=== PATIENT | male | born 1950 | race Hispanic/Latino ===

== ENCOUNTER 2025-03-22 13:24 | Inpatient (IN) | payer MEDICARE ==
[~2025-03-22] VITALS: Ht 167.6 cm; Wt 82.2 kg
[~2025-03-22 13:24] MED LIST: ACET-3859 PO; ASPI-1197 PO; ATOR40TA71 PO; CARV6.25 PO; EMPA10TA PO; METF-444 PO; NITR0.4T50 SL; SACU1TAB7 PO; SPIR25TA6 PO; TAMS-55 PO
[2025-03-22 14:50] VITALS: BP 127/96; PULSE 77; RESP 20; TEMP 98.9
[2025-03-22] MEDS ORDERED: LOSA50TA64 PO (15:28)
[2025-03-22] MEDS ORDERED: ISOS30TA92 PO (15:28)
[2025-03-22] MEDS ORDERED: TRAZ-185 PO (15:28)
[2025-03-22] MEDS ORDERED: PoTASSium chloRIDE 20MEQ ER 20 MEQ ERTAB PO PRN (15:30)
[2025-03-22] MEDS ORDERED: PoTASSium chl 10% ELIXIR 20MEQ 20 MEQ/15 ML UDCUP PO PRN (15:30)
[2025-03-22 15:40] LABS: IMMATURE GRANULOCYTE ABSOLUTE 0.03 K/uL (0-1); NUCLEATED RED BLOOD CELLS 0.0 % (0.0-0.19); PLATELET COUNT (AUTO) 228 K/uL (130-400); RED BLOOD CELL COUNT(AUTO) 4.73 MIL/uL (4.50-6.20); RED CELL DISTRIBUTION WIDTH 13.7 % (11.0-15.5); WHITE BLOOD COUNT (AUTO) 9.7 K/uL (4.8-10.8)
[2025-03-22 15:51] LABS: INR 1.02 (0.85-1.15)
[2025-03-22 15:55] LABS: CREATININE 1.0 mg/dL (0.5-1.3); GLOMERULAR FILTR. RATE CALC 79.0 mL/min (>90); GLUCOSE,RANDOM 152.0 mg/dL (70-105); SODIUM SERUM 133.0 mmol/L (136-145); UREA NITROGEN, BLOOD 22.0 mg/dL (7-18)
[2025-03-22 16:00] VITALS: BP 105/56; PULSE 76; RESP 20; TEMP 97.6
[2025-03-22 16:04] LABS: CREATINE KINASE, TOTAL 249.0 U/L (21-232)
--- NOTE | 2025-03-22 16:04 | HP ---
[facility] HISTORY AND PHYSICAL Date of Service: Mar 22, 2025 Time of Service: 15:38 HISTORY OF PRESENT ILLNESS: Date of service: 03/22/2025, patient was [place] [facility] [place] 74-year-old male with history of type 2 diabetes mellitus, hypertension, hyperlipidemia, history of nonischemic cardiomyopathy with LVEF of 30-35%, history of severe aortic stenosis, nonobstructive coronary artery disease on cardiac catheterization from 11/30/2024, history of subdural hematoma in 02/2024 secondary to fall, who presented from [facility] as a transfer for further management of severe aortic stenosis. Patient presented to the ER in [facility] close to 7:00 p.m. yesterday after he had a fall where he hit the front of the head. Patient states that he was working outside where he experience dizziness and generalized weakness leading to the fall. Denies any syncopal episode. Patient has a previous 2D echocardiogram from 10/2024 which showed LVEF of 30-35% with grade 2 diastolic failure and critical aortic stenosis. Patient was previously hospitalized in [facility] in 11/2024 where he underwent cardiac catheterization where he was found to have severe aortic stenosis with peak to peak gradient of 72 mmHg with mean gradient of 53 mmHg and calculated aortic valve area of 0.66 cm2. Patient was seen by Dr. Schumacher with Cardiovascular surgery who recommended for evaluation for TAVR due to depressed EF of 35%. Patient has not followed up with CV surgery as outpatient. On presentation to [facility], patient underwent CT head without contrast which showed findings of mild cerebral atrophy and minimal small-vessel disease with no intracranial bleed. X-ray of the left knee showed no fractures, CT of the cervical spine without contrast showed no acute fractures or subluxation. Labs in the ER showed WBC count of 12,1600, hemoglobin of 12.9, platelet count of 553127. BMP remarkable for sodium of 137, potassium 4.0, chloride of 100, BUN of 21, creatinine of 1.18, glucose of 196, calcium 9.3. Panel also significant for high sensitivity troponin initially of 903 which up trended to 4514. Patient reported having chest pain in [facility] ER with associated radiation to the neck. Patient will be admitted under hospitalist service and consultation with Cardio logy and Cardiovascular surgery will be obtained. REVIEW OF SYSTEMS CONSTITUTIONAL: Denies fevers, chills, or night sweats. No unintentional weight loss reported. NEUROLOGICAL: Fall yesterday ENT: No hearing loss, otalgia, otorrhea, rhinitis, rhinorrhea, hoarseness, or sore throat. CARDIOVASCULAR: Chest pain PULMONARY: Denies any shortness of breath, cough, phlegm/sputum, hemoptysis, pleuritic chest pain. SLEEP: Denies morning headaches, daytime somnolence or napping. Denies difficulty falling asleep, staying asleep, waking from sleep. Denies knowledge of snoring. GASTROINTESTINAL: Denies any type of dysphagia to either liquids or solids. Denies nausea, vomiting, pyrosis, early satiety, abdominal pain, diarrhea, constipation, or changes in stool consistency or caliber. Denies coffee-ground emesis, hematemesis, hematochezia, or melanotic stools. GENITOURINARY: Denies frequency, urgency, nocturia, hematuria or incontinence (Storage/Irritative symptoms.) Low urinary stream, straining to void, urinary intermittency or hesitancy, splitting of the voiding stream, terminal dribbling. ENDOCRINOLOGIC: Denies polyuria, polydipsia, polyphagia or heat/cold intolerances. HEMATOLOGIC: Denies thrombophilia/previous clots, or coagulopathy/bleeding disorders. ONCOLOGIC: Denies personal history of malignancy. DERMATOLOGIC: Denies rashes or pruritus. PSYCHIATRIC: Denies any suicidal or homicidal ideation. Denies hallucinations. PAST MEDICAL HISTORY: Hypertension, hyperlipidemia, nonobstructive cardiomyopathy with LV EF of 30- 35%, history of severe/critical aortic stenosis, patient has a history of subdural hematoma from fall in 02/2024 requiring extended hospitalization in [facility] PAST SURGICAL HISTORY: Reports having history of cardiac catheterization in 11/30/[address] Newberry which showed findings of: FINDINGS: Left heart catheterization/coronary angiography Right coronary artery was dominant, with mid RPDA 30-40% focal stenosis otherwise angiographically free of disease. Left main: Angiographically free of disease, with trifurcation LAD, ramus intermedius and left circumflex Left anterior descending artery: Calcified 30% narrowing at the takeoff of the 2nd diagonal, otherwise it was a wrap-around LAD and free of angiographic disease. There is a 2nd diagonal with ostial 30% stenosis. Ramus intermedius: Ostial 20-30% stenosis with IFR negative at 0.96 Left circumflex: Ostial 30% stenosis with IFR negative at 1.00. The left circumflex and OM branches were otherwise free of disease. Hemodynamics Opening aortic pressure 103/50 with a mean of 71 mm of mercury Left ventricle 177 mm of mercury LVEDP 4 mm of mercury Vulx-rk-ukdo gradient of 72 mmHg with mean gradient of 53 mmHg and calculated aortic valve area of 0.66 cm2. Right heart catheterization RA 4/2/2 RV 17/2 PA 17/02/10 PCWP 43/3 O2 saturations AO 96.4% PA 67.4% RA 68% Cardiac output 3.94 liters/minute Cardiac index 2.01 liters/minute/m2 Contrast delivered to patient: 145 ml Fluoroscopy time: 17 minutes SUMMARY 1. Nonobstructive coronary artery disease 2. Severe aortic stenosis 3. Nonischemic cardiomyopathy PAST SOCIAL HISTORY: Drinks occasionally about once a month, remote smoking history and quit smoking about 50 years ago FAMILY HISTORY: Denies pertinent family history Allergies: No known drug allergies Coded Allergies: No Known Drug Allergies (Unverified Allergy, Unknown, 11/28/24) PHYSICAL EXAM: GENERAL APPEARANCE: The patient is awake, alert, and oriented, in no acute cardiopulmonary distress. NEUROLOGICAL: Cranial nerves II-XII grossly intact. Motor is 5/5 in bilateral upper and lower extremities proximal to distal. No sensory deficits. HEENT: Face is symmetric. Pupils are equal and reactive. Extraocular movements are intact. NECK: Supple. No JVD. No thyromegaly. No submental, submandibular, pre-/po stauricular, occipital or supraclavicular lymphadenopathy. CHEST: Normal chest expansion. No Telemetry. LUNGS: Absence of any rales, rhonchi or any wheezing. CARDIOVASCULAR: Regular. 3/6 systolic murmur noted in the 2nd right intercostal space ABDOMEN: Soft, nontender, and nondistended. There is no rebound, voluntary guarding, or rigidity. : Deferred. No [place]. EXTREMITIES: Non-edematous and not cyanotic. No clubbing. Good capillary refill. SKIN: No skin breakdown. Vital Sign (Last 24 Hours) 03/22/25 14:50 Temp 99.0 Pulse 77 Resp 20 B/P (MAP) 127/96 Pulse Ox 96 O2 Delivery Room Air LABS: Laboratory Tests Test 03/22/25 15:30 White Blood Count 9.7 K/uL (4.8-10.8) Red Blood Count 4.73 MIL/uL (4.50-6.20) Hemoglobin 13.5 g/dL (14.0-18.0) L Hematocrit 39.1 % (42-54) L Mean Corpuscular Volume 82.7 fL (79-99) Mean Corpuscular Hemoglobin 28.5 pg (27.0-33.0) Mean Corpuscular Hemoglobin Concent 34.5 g/dL (32.0-36.0) Red Cell Distribution Width 13.7 % (11.0-15.5) Platelet Count 228 K/uL (130-400) Mean Platelet Volume 10.2 fL (7.5-10.5) Immature Granulocyte % (Auto) 0.3 % (0-1) Neutrophils (%) (Auto) 84.4 % (40.0-77.0) H Lymphocytes (%) (Auto) 8.4 % (21.0-51.0) L Monocytes (%) (Auto) 6.6 % (3.0-13.0) Eosinophils (%) (Auto) 0.2 % (0.0-8.0) Basophils (%) (Auto) 0.1 % (0.0-5.0) Neutrophils # (Auto) 8.2 K/uL (1.8-7.7) H Lymphocytes # (Auto) 0.8 K/uL (1.0-4.8) L Monocytes # (Auto) 0.6 K/uL (0.1-1.0) Eosinophils # (Auto) 0.02 K/uL (0.00-0.70) Basophils # (Auto) 0.01 K/uL (0.00-0.20) Absolute Immature Granulocyte (auto 0.03 K/uL (0-1) Nucleated Red Blood Cells 0.0 % (0.0-0.19) White Cell Morphology Comment Pending Prothrombin Time 10.8 SEC (9.6-11.6) Prothromb Time International Ratio 1.02 (0.85-1.15) Activated Partial Thromboplast Time 40.0 SEC (26.3-35.5) H Sodium Level 133 mmol/L (136-145) L Potassium Level 4.2 mmol/L (3.5-5.1) Chloride Level 100 mmol/L (101-111) L Carbon Dioxide Level 27 mmol/L (21-32) Blood Urea Nitrogen 22 mg/dL (7-18) H Creatinine 1.0 mg/dL (0.5-1.3) Glomerular Filtration Rate Calc 79 mL/min (>90) Random Glucose 152 mg/dL (70-105) H Lactic Acid Level 1.5 mmol/L (0.8-2.5) Total Calcium 8.7 mg/dL (8.5-10.1) Magnesium Level Pending Total Bilirubin Pending Aspartate Amino Transf (AST/SGOT) Pending Alanine Aminotransferase (ALT/SGPT) Pending Alkaline Phosphatase Pending Total Protein Pending Albumin Pending Triglycerides Level Pending Cholesterol Level Pending LDL Cholesterol Pending HDL Cholesterol Pending Thyroid Stimulating Hormone (TSH) Pending Current Medications Medications (Trade) Dose Ordered Sig/Dotty Route PRN Reason Start Time Stop Time Status Last Admin Dose Admin Acetaminophen (TYLenol 325MG TAB) 650 mg Q6H PRN PO MILD PAIN (1-3) 03/22/25 15:30 04/21/25 15:29 Aspirin (Aspirin 81mg Chew Tab) 81 mg DAILY PO 03/23/25 09:00 04/22/25 08:59 Famotidine (Pepcid 20mg Tab) 20 mg Q48H PO 03/22/25 21:00 04/21/25 20:59 Insulin Human Regular (humuLIN R 100 UNIT/ML 3ML) INSULIN SLIDING SCAL... ACHS SQ 03/22/25 16:30 04/21/25 16:29 Losartan Potassium (CozAAR 50 mg TAB) 50 mg DAILY PO 03/23/25 09:00 04/22/25 08:59 Magnesium Sulfate 50 ml @ 0 mls/hr PROTOCOL IV 03/22/25 15:30 04/21/25 15:29 Ondansetron HCl (zoFRAN 4MG INJ) 4 mg Q6H PRN IVP NAUSEA/VOMITING 03/22/25 15:30 04/21/25 15:29 Potassium Chloride 100 ml @ 100 mls/hr AD PRN IV POTASSIUM PROTOCOL 03/22/25 15:30 04/21/25 15:29 Potassium Chloride (K-Dur/Klor-Con 20meq) 20 meq AD PRN PO POTASSIUM PROTOCOL 03/22/25 15:30 04/21/25 15:29 Potassium Chloride (KCl 10% Elixir 20meq/15ml) 20 meq AD PRN PO POTASSIUM PROTOCOL 03/22/25 15:30 04/21/25 15:29 DIAGNOSTICS / RADIOLOGY: On presentation to [facility], 03/21/2025, patient underwent CT head without contrast which showed findings of mild cerebral atrophy and minimal small-vessel disease with no intracranial bleed. X-ray of the left knee showed no fractures, CT of the cervical spine without contrast showed no acute fractures or subluxation. ASSESSMENT: Status post fall, POA History of severe/critical aortic stenosis, POA History of nonobstructive coronary artery disease, POA NSTEMI, likely type II, POA History of [id number]-[id number] mitral regurgitation, POA History of moderate aortic regurgitation, POA History of subdural hematoma in 02/2024, POA History of nonischemic cardiomyopathy with LVEF of 30-35%, POA Hypertension, POA Hyperlipidemia, POA Type 2 diabetes mellitus, POA PLAN: 74-year-old male with history of severe aortic stenosis with findings of aortic valve area of 0.2-0.4 and LVEF of 30-35% from 2D echocardiogram from 10/2024. Patient has [place] [facility] [place] which showed findings of nonobstructive coronary artery disease with severe aortic stenosis and nonischemic cardiomyopathy Patient on presentation to [facility] was found to have high sensitivity troponin initially of 903 which up trended close to 4500 today. We will recheck cardiac panel to see if troponins are downtrending. c/w Aspirin 81 mg daily, will discuss with Cardiology about continuation of Heparin gtt. Likely demand ischemia from fall and severe . We will await further evaluation by Dr. Sevilla with Cardiovascular surgery and Dr. Banerjee's with Cardiology. Patient was previously evaluated by Dr. Schumacher in 11/2024 who had recommended evaluation for TAVR. 2 D echocardiogram will be repeated this admission. Patient to continue with guideline directed medical therapy with losartan 50 mg daily Continue with potassium and magnesium per protocol, maintain potassium greater than four and magnesium greater than two Patient will be placed on fall precautions, we will request consultation with Wound Care for management of forehead abrasion from fall All labs will be repeated in the morning Date of service: 03/22/2025 Plan of care was discussed with patient and daughter at bedside, Laci Arellano MD Advanced Care Planning: Which of the following were discussed: Hospice care: Yes __ No _X_ Therapeutic options: Yes _X_ No __ Advance directives: Yes _X_ No __ Other discussions: Discussed with who?: Patient Voluntary nature of this service was explained to the patient? Yes _x_ No __ Amount of time spent: 20 minutes LACI ARELLANO MD Mar 22, 2025 16:04
[2025-03-22 16:07] LABS: ASPARTATE AMINOTRANSFERASE 34.0 U/L (10-37); LDL DIRECT 70.0 mg/dL (0-99); TOTAL PROTEIN, SERUM 7.2 g/dL (6.0-8.3)
[2025-03-22] MEDS ORDERED: NITROGLYCERIN 0.4 MG SL TAB SL SCH (16:30)
--- NOTE | 2025-03-22 16:39 | CONS ---
[facility] Cardiology Consultation Note Cardiology progress note dictated for Komal Collado MD Date of service 03/22/2025 Problem list: Status post fall denies syncope NSTEMI ( TI 4,216, [id number]) Critical aortic stenosis on echocardiogram 11/24/2024 peak/mean gradient 113/69 mmHg, RITA 0.2-0.4cm2, moderate aortic regurgitation with [id number] mitral regurgitation Chronic combined systolic and diastolic congestive heart failure 2D echocardiogram November 24, 2024 left ventricular ejection fraction 30-35%, grade 2 diastolic dysfunction. Left heart catheterization November 30 2024 nonobstructive coronary artery disease: mid RPDA 30-40% focal stenosis, 30% narrowing takeoff of the 2nd diagonal, ramus intermedius with ostial 20-30% stenosis, left circumflex ostial 30% stenosis. Diabetes mellitus type 2 Hypertension History of subdural hematoma Review of blood work: Basic metabolic panel with a sodium of 133, potassium 4.2, BUN of 22 creatinine of 1.0 and a GFR of 79. CBC with hemoglobin of 13.5, hematocrit 39.1 white blood cells of 9.7 and platelets of 228. Troponin high sensitivity from [facility] 4216, 5297, 4514, 903. Current medications: Aspirin 81 mg daily, losartan 50 mg daily, insulin sliding scale, famotidine, heparin drip. Assessment/plan: 74-year-old male presented as a transfer from [facility] for possible aortic valve replacement. He was here in November underwent left heart catheterization demonstrating nonobstructive CAD. Echocardiogram in October had demonstrated severe aortic stenosis with estimated RITA of 0.2-0.4 cm2 with peak/mean gradient 113/69 mmHg. He was evaluated by Cardiothoracic surgeon and was believed to be a good candidate for TAVR. Surgery did not take place during admission and patient was discharged home. He presented to the emergency department at [facility] after a fall. Cardiology consult was requested patient was diagnosed with NSTEMI started on a heparin drip and was transferred for higher level of care and possible surgery. We will obtain a repeat echocardiogram to evaluate LVEF. If EF has improved, he can be considered for surgical AVR if on the other hand if LVEF remains low he can be discharged home and follow up as out patient for TAVR with DR Luke or Dr Rivers in [place]. ATTESTATION BY PHYSICIAN I have seen and examined the patient. I reviewed the documentation, medical decision making, and treatment plan as noted by the mid-level provider above. I agree with the findings and plan of care. KOMAL COLLADO MD, [facility] Mar 22, 2025 16:39 KOMAL COLLADO MD Mar 22, 2025 16:40
[2025-03-22] MEDS: MAGNESIUM 2GM PREMIX 50ML 50 ML IV SCH (18:46)
[2025-03-22 19:30] VITALS: BP 119/60; PULSE 80; RESP 18; TEMP 99.5
[2025-03-22] MEDS: FAMOTIDINE 20MG TAB PO SCH (20:36)
[2025-03-23] VITALS (7 sets, daily range): BP systolic 103–130; BP diastolic 49–63; PULSE 63–75; RESP 18–21; TEMP 97.8–98.5; O2SAT 95
[2025-03-23 04:25] LABS: IMMATURE GRANULOCYTE ABSOLUTE 0.03 K/uL (0-1); NUCLEATED RED BLOOD CELLS 0.0 % (0.0-0.19); PLATELET COUNT (AUTO) 219 K/uL (130-400); RED BLOOD CELL COUNT(AUTO) 4.56 MIL/uL (4.50-6.20); RED CELL DISTRIBUTION WIDTH 13.5 % (11.0-15.5); WHITE BLOOD COUNT (AUTO) 7.8 K/uL (4.8-10.8)
[2025-03-23 04:45] LABS: ASPARTATE AMINOTRANSFERASE 26.0 U/L (10-37); CREATINE KINASE, TOTAL 149.0 U/L (21-232); CREATININE 0.8 mg/dL (0.5-1.3); GLOMERULAR FILTR. RATE CALC 93.0 mL/min (>90); GLUCOSE,RANDOM 132.0 mg/dL (70-105); SODIUM SERUM 136.0 mmol/L (136-145); TOTAL PROTEIN, SERUM 6.8 g/dL (6.0-8.3); UREA NITROGEN, BLOOD 19.0 mg/dL (7-18)
[2025-03-23] MEDS: ASPIRIN 81MG CHEW TAB PO SCH (09:40)
--- NOTE | 2025-03-23 11:10 | NUR ---
DCP: HOME Sw met with pt's daughter Carrie Evans [phone], ([phone] ask for dispatcher) while pt having test. Per daughter, pt lives with his Jannet [phone]. Daughter sates pt remains "too active", family can't get pt to slow down. Family does not allow pt to drive, they transport as needed. Pt able to complete ADLS, on his own, no DME or in home care services at this time.PCP is Demetrio Beltran, and uses [facility] for rx needs. DCP is home, denies need for SNF. Addendum: 03/23/25 at 1115 by DEIRDRE GAONA Amended: Links added.
--- NOTE | 2025-03-23 11:57 | PN ---
[facility] PROGRESS NOTE Date of Service: Mar 23, 2025 Time of Service: 11:52 SUBJECTIVE: 03/23 patient remains admitted to the PCU, hemodynamically stable, afebrile, saturating normal on room air. Hemoglobin and hematocrit stable, CMP remarkable, latest troponin 1799. Echocardiogram pending At the time of my visit patient comfortably in bed, alert oriented x3, denies dizziness, no headache, no chest pain, no shortness a breath, no nausea, no vomiting, no abdominal pain, no diarrhea, no constipation, and daughter at bedside. Patient with small laceration to the right frontal area, wound care consultation requested. Continue to follow Cardiology input and recommendation, echocardiogram done, pending report, continue aspirin 81 mg p.o. daily, losartan 50 mg p.o. daily, atorvastatin 40 mg p.o. at bedtime. Cardiology input noted and appreciated, patient had left heart catheterization in November, demonstrating nonobstructive CAD. Echocardiogram in October demonstrated severe aortic stenosis with an estimated RITA of 0.2-0.4 cm. He was evaluated by Cardiothoracic surgeon and was believed to be a good candidate for TAVR. Patient now presented after a fall, diagnosed with non-STEMI, on heparin drip. From cardiology standpoint, further recommendations will depend on ejection fraction on repeat echocardiogram, if it shows improvement, then he will be considered for surgical AVR, if on the other hand remains low, patient can be discharged home and follow up as an outpatient for TAVR with a Dr. Luke and Dr. Rivers in [place]. REVIEW OF SYSTEMS CONSTITUTIONAL: Denies fevers, chills, or night sweats. No unintentional weight loss reported. NEUROLOGICAL: Fall yesterday ENT: No hearing loss, otalgia, otorrhea, rhinitis, rhinorrhea, hoarseness, or sore throat. CARDIOVASCULAR: Chest pain PULMONARY: Denies any shortness of breath, cough, phlegm/sputum, hemoptysis, pleuritic chest pain. SLEEP: Denies morning headaches, daytime somnolence or napping. Denies difficulty falling asleep, staying asleep, waking from sleep. Denies knowledge of snoring. GASTROINTESTINAL: Denies any type of dysphagia to either liquids or solids. Denies nausea, vomiting, pyrosis, early satiety, abdominal pain, diarrhea, constipation, or changes in stool consistency or caliber. Denies coffee-ground emesis, hematemesis, hematochezia, or melanotic stools. GENITOURINARY: Denies frequency, urgency, nocturia, hematuria or incontinence (Storage/Irritative symptoms.) Low urinary stream, straining to void, urinary intermittency or hesitancy, splitting of the voiding stream, terminal dribbling. ENDOCRINOLOGIC: Denies polyuria, polydipsia, polyphagia or heat/cold intolerances. HEMATOLOGIC: Denies thrombophilia/previous clots, or coagulopathy/bleeding disorders. ONCOLOGIC: Denies personal history of malignancy. DERMATOLOGIC: Denies rashes or pruritus. PSYCHIATRIC: Denies any suicidal or homicidal ideation. Denies hallucinations. PHYSICAL EXAM: GENERAL APPEARANCE: The patient is awake, alert, and oriented, in no acute cardiopulmonary distress. NEUROLOGICAL: Cranial nerves II-XII grossly intact. Motor is 5/5 in bilateral upper and lower extremities proximal to distal. No sensory deficits. HEENT: Face is symmetric. Pupils are equal and reactive. Extraocular movements are intact. NECK: Supple. No JVD. No thyromegaly. No submental, submandibular, pre-/postau ricular, occipital or supraclavicular lymphadenopathy. CHEST: Normal chest expansion. No Telemetry. LUNGS: Absence of any rales, rhonchi or any wheezing. CARDIOVASCULAR: Regular. 3/6 systolic murmur noted in the 2nd right intercostal space ABDOMEN: Soft, nontender, and nondistended. There is no rebound, voluntary guarding, or rigidity. : Deferred. No [place]. EXTREMITIES: Non-edematous and not cyanotic. No clubbing. Good capillary refill. SKIN: No skin breakdown. Vital Signs (last 8hr) Date Time Temp Pulse Resp B/P (MAP) Pulse Ox O2 Delivery O2 Flow Rate FiO2 03/23/25 11:00 97.9 74 18 120/62 94 Room Air 03/23/25 07:00 98.4 66 19 127/49 97 Room Air LABS: Laboratory: Test 03/23/25 11:24 03/23/25 10:07 03/23/25 04:12 03/22/25 15:56 Range/Units Whole Blood Glucose 135 H 70-110 MG/DL Activated Partial Thromboplast Time 54.1 H 26.3-35.5 SEC White Blood Count 7.8 4.8-10.8 K/uL Red Blood Count 4.56 4.50-6.20 MIL/uL Hemoglobin 12.9 L 14.0-18.0 g/dL Hematocrit 38.4 L 42-54 % Mean Corpuscular Volume 84.2 79-99 fL Mean Corpuscular Hemoglobin 28.3 27.0-33.0 pg Mean Corpuscular Hemoglobin Concent 33.6 32.0-36.0 g/dL Red Cell Distribution Width 13.5 11.0-15.5 % Platelet Count 219 130-400 K/uL Mean Platelet Volume 10.4 7.5-10.5 fL Immature Granulocyte % (Auto) 0.4 0-1 % Neutrophils (%) (Auto) 73.3 40.0-77.0 % Lymphocytes (%) (Auto) 17.5 L 21.0-51.0 % Monocytes (%) (Auto) 7.7 3.0-13.0 % Eosinophils (%) (Auto) 1.0 0.0-8.0 % Basophils (%) (Auto) 0.1 0.0-5.0 % Neutrophils # (Auto) 5.7 1.8-7.7 K/uL Lymphocytes # (Auto) 1.4 1.0-4.8 K/uL Monocytes # (Auto) 0.6 0.1-1.0 K/uL Eosinophils # (Auto) 0.08 0.00-0.70 K/uL Basophils # (Auto) 0.01 0.00-0.20 K/uL Absolute Immature Granulocyte (auto 0.03 0-1 K/uL Nucleated Red Blood Cells 0.0 0.0-0.19 % Sodium Level 136 136-145 mmol/L Potassium Level 4.3 3.5-5.1 mmol/L Chloride Level 102 101-111 mmol/L Carbon Dioxide Level 29 21-32 mmol/L Blood Urea Nitrogen 19 H 7-18 mg/dL Creatinine 0.8 0.5-1.3 mg/dL Glomerular Filtration Rate Calc 93 >90 mL/min Random Glucose 132 H 70-105 mg/dL Total Calcium 8.7 8.5-10.1 mg/dL Magnesium Level 2.10 1.80-2.40 mg/dL Total Bilirubin 0.7 0.2-1.0 mg/dL Aspartate Amino Transf (AST/SGOT) 26 10-37 U/L Alanine Aminotransferase (ALT/SGPT) 26 12-78 U/L Alkaline Phosphatase 71 50-136 U/L Total Creatine Kinase 149 # 21-232 U/L Troponin I High Sensitivity 1799.4 *H 4-75 ng/L Total Protein 6.8 6.0-8.3 g/dL Albumin 3.2 L 3.5-5.0 g/dL Bedside Glucose Comment Notified Nurse Test 03/22/25 15:30 Range/Units White Cell Morphology Comment See comments Prothrombin Time 10.8 9.6-11.6 SEC Prothromb Time International Ratio 1.02 0.85-1.15 Hemoglobin A1c 6.3 H 4.0-6.0 % Estimated Average Glucose (eAG) 134 H 70-126 mg/dL Lactic Acid Level 1.5 0.8-2.5 mmol/L B-Type Natriuretic Peptide 1330 H 0-100 pg/mL Triglycerides Level 102 30-200 mg/dL Cholesterol Level 136 <200 mg/dL LDL Cholesterol 70 0-99 mg/dL HDL Cholesterol 58 29-71 mg/dL Thyroid Stimulating Hormone (TSH) 1.00 0.36-3.74 uIU/mL Current Medications Medications (Trade) Dose Ordered Sig/Dotty Route PRN Reason Start Time Stop Time Status Last Admin Dose Admin Acetaminophen (TYLenol 325MG TAB) 650 mg Q6H PRN PO MILD PAIN (1-3) 03/22/25 15:30 04/21/25 15:29 03/22/25 16:32 650 MG Aspirin (Aspirin 81mg Chew Tab) 81 mg DAILY PO 03/23/25 09:00 04/22/25 08:59 03/23/25 09:40 81 MG Atorvastatin Calcium (LIPItor 40MG) 40 mg HS PO 03/22/25 21:00 04/21/25 20:59 03/22/25 20:36 40 MG Famotidine (Pepcid 20mg Tab) 20 mg Q48H PO 03/22/25 21:00 04/21/25 20:59 03/22/25 20:36 20 MG Heparin Sodium (Porcine) (HEParin 5,000 UNIT VIAL) *calculation based on ACTUAL B... AD PRN IV HEPARIN PROTOCOL 03/22/25 17:30 04/21/25 17:29 03/22/25 17:01 3,000 UNIT Heparin Sodium/ Dextrose 250 ml @ 0 mls/hr Q6H IV 03/22/25 17:30 04/21/25 17:29 03/22/25 23:58 0 MLS/HR Insulin Human Regular (humuLIN R 100 UNIT/ML 3ML) INSULIN SLIDING SCAL... ACHS SQ 03/22/25 16:30 04/21/25 16:29 Losartan Potassium (CozAAR 50 mg TAB) 50 mg DAILY PO 03/23/25 09:00 04/22/25 08:59 03/23/25 09:40 50 MG Magnesium Sulfate 50 ml @ 0 mls/hr PROTOCOL IV 03/22/25 15:30 04/21/25 15:29 03/22/25 18:46 25 MLS/HR Nitroglycerin (Nitrostat) 0.4 mg AD SL 03/22/25 16:30 04/21/25 16:29 Ondansetron HCl (zoFRAN 4MG INJ) 4 mg Q6H PRN IVP NAUSEA/VOMITING 03/22/25 15:30 04/21/25 15:29 Potassium Chloride 100 ml @ 100 mls/hr AD PRN IV POTASSIUM PROTOCOL 03/22/25 15:30 04/21/25 15:29 Potassium Chloride (K-Dur/Klor-Con 20meq) 20 meq AD PRN PO POTASSIUM PROTOCOL 03/22/25 15:30 04/21/25 15:29 Potassium Chloride (KCl 10% Elixir 20meq/15ml) 20 meq AD PRN PO POTASSIUM PROTOCOL 03/22/25 15:30 04/21/25 15:29 Tamsulosin HCl (FloMAX) 0.4 mg DAILY PO 03/23/25 09:00 04/22/25 08:59 03/23/25 09:40 0.4 MG Trazodone HCl (DesyREL/OlepTRO) 50 mg HS PO 03/22/25 21:00 04/21/25 20:59 03/22/25 20:36 50 MG DIAGNOSTICS / RADIOLOGY: [ ] ASSESSMENT: Status post fall, POA History of severe/critical aortic stenosis, POA History of nonobstructive coronary artery disease, POA NSTEMI, likely type II, POA History of [id number] mitral regurgitation, POA History of moderate aortic regurgitation, POA History of subdural hematoma in 02/2024, POA History of nonischemic cardiomyopathy with LVEF of 30-35%, POA Hypertension, POA Hyperlipidemia, POA Type 2 diabetes mellitus, POA PLAN: Patient with small laceration to the right frontal area, wound care consultation requested. Continue to follow Cardiology input and recommendation, echocardiogram done, pending report, continue aspirin 81 mg p.o. daily, losartan 50 mg p.o. daily, atorvastatin 40 mg p.o. at bedtime. Cardiology input noted and appreciated, patient had left heart catheterization in November, demonstrating nonobstructive CAD. Echocardiogram in October demonstrated severe aortic stenosis with an estimated RITA of 0.2-0.4 cm. He was evaluated by Cardiothoracic surgeon and was believed to be a good candidate for TAVR. Patient now presented after a fall, diagnosed with non-STEMI, on heparin drip. From cardiology standpoint, further recommendations will depend on ejection fraction on repeat echocardiogram, if it shows improvement, then he will be considered for surgical AVR, if on the other hand remains low, patient can be discharged home and follow up as an outpatient for TAVR with a Dr. Luke and Dr. Rivers in [place]. NEURO: Minimize central acting medications as possible. Fall Precautions. Well lighted room through the day and minimize interruptions through the night to prevent acute delirium. PULMONARY: Supplemental 02 as needed BiPAP as necessary, for respiratory distress Titrate Fio2 to keep Spo2 > or = 90% DuoNebs and CPT as needed IS hourly while awake for pulmonary hygiene prn Out of bed to chair as tolerated Maintain aspiration precautions at all times CARDIOVASCULAR: Follow hemodynamics. Vital signs per facility protocol GI & NUTRITION: Continue nutritional support Aspirations precautions Prokinetic agents and laxatives as needed KIDNEYS & ELECTROLYTES: Strict monitoring of intake and output Daily weights Avoid nephrotoxic agents Monitor electrolytes and replace as needed Goal urine output of 30mL/hr or 0.5mL/kg/hr Medications to be dosed according to renal function. Avoid contrast if possible ENDOCRINE: Maintain blood glucose between 100-180 at all times. Insulin sliding scale for blood glucose management Hypoglycemia and hyperglycemia protocol in place INFECTIOUS DISEASE: Trend temperature, WBC and procalcitonin level Follow cultures, deescalate antibiotics as soon as possible. Panculture if new onset fever HEMATOLOGY & COAGULATION: Monitor H&H. Keep Hgb > 7 Transfuse 1 unit of PRBC for Hgb < 7 Transfuse 1 pack of platelets of platelets < 20, 000 Watch for any signs and symptoms of bleeding SKIN: Pressure ulcer prevention per facility protocol Specialty mattress as needed ORTHO/REHAB Continue PT/OT PRN: MEDICATIONS Tylenol 650 mg po every 4 hrs for fever zofran 4 mg IV every 6 hrs for n/v Hydralazine 5 mg IV every 4 hrs systolic pressure > 160 bowel regiment: lactulose 20 gm PO BID PRN constipation Supportive measures: Continue GI and DVT prophylaxis Disposition: Pending improvement in clinical condition and echocardiogram report All questions answered time spent: > 35 min ULICES DOVER MD Mar 23, 2025 11:57
--- NOTE | 2025-03-23 13:52 | PN ---
[facility] CARDIOLOGY PROGRESS NOTE Cardiology progress note dictated for Janusz Jackson MD Date Patient Seen: Mar 23, 2025 Interval History: This is a 74-year-old male with a past medical history of severe aortic stenosis pending TAVR. The [place] [facility] [place] and was diagnosed with NSTEMI. [place] [facility] [place]. Physical Examination: GENERAL: No acute distress. Bruising to mid central forehead, bilateral eyes, and chin. HEAD: Normal with no signs of head trauma. EYES: Conjunctiva and sclera normal. NECK: Supple without JVD. Normal carotid upstrokes without bruits. LUNGS: Clear breath sounds bilaterally. No wheezes, or rhonchi. HEART: Normal rate and rhythm. Normal S1 and S2 without murmurs, gallop or rub. VASC: Peripheral pulses +2 bilaterally. EXT: No clubbing, cyanosis or edema. NEURO: Awake, alert, and oriented x3. No focal neurological deficits noted. Laboratory: Hematology Labs: Test 03/23/25 04:12 03/22/25 15:30 Range/Units White Blood Count 7.8 4.8-10.8 K/uL Red Blood Count 4.56 4.50-6.20 MIL/uL Hemoglobin 12.9 L 14.0-18.0 g/dL Hematocrit 38.4 L 42-54 % Mean Corpuscular Volume 84.2 79-99 fL Mean Corpuscular Hemoglobin 28.3 27.0-33.0 pg Mean Corpuscular Hemoglobin Concent 33.6 32.0-36.0 g/dL Red Cell Distribution Width 13.5 11.0-15.5 % Platelet Count 219 130-400 K/uL Mean Platelet Volume 10.4 7.5-10.5 fL Immature Granulocyte % (Auto) 0.4 0-1 % Neutrophils (%) (Auto) 73.3 40.0-77.0 % Lymphocytes (%) (Auto) 17.5 L 21.0-51.0 % Monocytes (%) (Auto) 7.7 3.0-13.0 % Eosinophils (%) (Auto) 1.0 0.0-8.0 % Basophils (%) (Auto) 0.1 0.0-5.0 % Neutrophils # (Auto) 5.7 1.8-7.7 K/uL Lymphocytes # (Auto) 1.4 1.0-4.8 K/uL Monocytes # (Auto) 0.6 0.1-1.0 K/uL Eosinophils # (Auto) 0.08 0.00-0.70 K/uL Basophils # (Auto) 0.01 0.00-0.20 K/uL Absolute Immature Granulocyte (auto 0.03 0-1 K/uL Nucleated Red Blood Cells 0.0 0.0-0.19 % White Cell Morphology Comment See comments Chemistry Labs: Test 03/23/25 11:24 03/23/25 04:12 03/22/25 15:56 03/22/25 15:30 Range/Units Whole Blood Glucose 135 H 70-110 MG/DL Sodium Level 136 136-145 mmol/L Potassium Level 4.3 3.5-5.1 mmol/L Chloride Level 102 101-111 mmol/L Carbon Dioxide Level 29 21-32 mmol/L Blood Urea Nitrogen 19 H 7-18 mg/dL Creatinine 0.8 0.5-1.3 mg/dL Glomerular Filtration Rate Calc 93 >90 mL/min Random Glucose 132 H 70-105 mg/dL Total Calcium 8.7 8.5-10.1 mg/dL Magnesium Level 2.10 1.80-2.40 mg/dL Total Bilirubin 0.7 0.2-1.0 mg/dL Aspartate Amino Transf (AST/SGOT) 26 10-37 U/L Alanine Aminotransferase (ALT/SGPT) 26 12-78 U/L Alkaline Phosphatase 71 50-136 U/L Total Creatine Kinase 149 # 21-232 U/L Troponin I High Sensitivity 1799.4 *H 4-75 ng/L Total Protein 6.8 6.0-8.3 g/dL Albumin 3.2 L 3.5-5.0 g/dL Bedside Glucose Comment Notified Nurse Hemoglobin A1c 6.3 H 4.0-6.0 % Estimated Average Glucose (eAG) 134 H 70-126 mg/dL Lactic Acid Level 1.5 0.8-2.5 mmol/L B-Type Natriuretic Peptide 1330 H 0-100 pg/mL Triglycerides Level 102 30-200 mg/dL Cholesterol Level 136 <200 mg/dL LDL Cholesterol 70 0-99 mg/dL HDL Cholesterol 58 29-71 mg/dL Thyroid Stimulating Hormone (TSH) 1.00 0.36-3.74 uIU/mL Coagulation Labs: Test 03/23/25 10:07 03/22/25 15:30 Range/Units Activated Partial Thromboplast Time 54.1 H 26.3-35.5 SEC Prothrombin Time 10.8 9.6-11.6 SEC Prothromb Time International Ratio 1.02 0.85-1.15 Diagnostics / Radiology: Impression and Plan: Status post fall denies syncope NSTEMI (Ti 4,216, [id number], 903) Critical aortic stenosis on echocardiogram 11/24/2024 peak/mean gradient 113/69 mmHg, RITA 0.2-0.4cm2, moderate aortic regurgitation with [id number] mitral regurgitation Chronic combined systolic and diastolic congestive heart failure 2D echocardiogram November 24, 2024 with LVEF of 30-35% with grade 2 diastolic dysfunction. Left heart catheterization November 30 2024 nonobstructive coronary artery disease: mid RPDA 30-40% focal stenosis, 30% narrowing takeoff of the 2nd diagonal, ramus intermedius with ostial 20-30% stenosis, left circumflex ostial 30% stenosis. Diabetes mellitus type 2 Hypertension History of subdural hematoma NSTEMI -Continue heparin infusion -Continue Aspirin 81 mg daily, atorvastatin 40 mg nightly and losartan 50 mg daily -Pending 2D echocardiogram -If EF has improved, he can be considered for surgical AVR. If LVEF remains low, he can be discharged home and follow up as out patient for TAVR with DR Luke or Dr Rivers in [place]. Patient has been seen and examined by myself Dr. Jackson and echo EF is relatively normal. I would still like him to be evaluated for possible TAVR considering age and other cardiovascular comorbidities. We will discuss this case further with physicians. EWELINA CLOUD Mar 23, 2025 13:52 JANUSZ JACKSON MD Mar 23, 2025 17:48
--- NOTE | 2025-03-23 14:07 | PN ---
SUBJECTIVE: The patient is a 74-year-old male with history of hypertension, diabetes mellitus and history of a subdural hematoma back in 02/2024. The patient also has a known history of aortic stenosis, which in 10/2024 revealed an aortic valve area of 0.2-0.4 cm2. He also had a depressed ejection fraction of 30-35% and heart catheterization in 10/2024 did not show any significant coronary artery disease. The patient was seen by my associate who recommended he have a TAVR procedure. Since that time, the patient has not had that procedure and he was admitted to [facility] and then transferred to this institution after the patient had some chest pain and fell hitting his forehead. OBJECTIVE: VITAL SIGNS: Revealed a temperature of 99, blood pressure 127/96, pulse is 77, respirations 20, oxygen saturation 96%. HEENT: Reveals normocephalic. He has a laceration on his forehead, which is bandaged. His extraocular movements are intact. HEART: S1 and S2 with a 3/6 systolic ejection murmur heard best at the upper sternal border. LUNGS: Unlabored at rest, off of oxygen. ABDOMEN: Reveals positive bowel sounds. LABORATORY DATA: His hemoglobin is 14.0. BUN is 34, creatinine 1.1. Beta natriuretic peptide is 505. His chest x-ray shows no evidence of pulmonary edema. ASSESSMENT AND PLAN: Symptomatic critical aortic stenosis. Our recommendations are the same that the patient receive a TAVR procedure. TID: [id number] RECEIPT: [id number]
--- NOTE | 2025-03-23 15:21 | NUR ---
[facility] Consult: Patient assessed by wound healing team. See wound assessment. Assessment and recommendations provided. Education provided. Addendum: 03/24/25 at 0939 by SAQIB TSAI RN RN/MIGUEL ÁNGEL Amended: Links added.
--- NOTE | 2025-03-23 17:45 | HMCSR ---
APPROVED REPORT EXAM: Two-dimensional and M-mode echocardiogram with Doppler and color Doppler. INDICATION ICD: Fall, critical aortic stenosis 2D Dimensions RVDd3.5 cmLVEF(%)55.0 (>50%)LVED Vol(simp.)172.0 mL IVSd1.1 (0.7-1.1cm)FS(%)29 %LVES Vol(simp.)94.0 mL LVDd5.6 (3.8-5.6cm)LA (2D)4.1 (1.6-4.0cm)LVEF(%, simp.)45 % PWd1.3 (0.7-1.1cm)Ao Root(2D)3.2 (2.0-3.7cm)LA ESV INDEX (BP)50.17 mL/m2 LVDs4.0 (2.5-4.0cm)LVOT diam2.3 (1.8-2.4cm) Deformation Strain Apical 4-10.9 % Apical 2-8.5 % Apical 3-12.8 % Global Strain-10.7 % M-Mode Dimensions EPSS1.3 cm LA (MM)4.4 (1.6-4.0cm) Ao Root(MM)3.4 (2.0-3.7cm) Aortic Valve AoV Vmax5.6 m/Trey Peak GR127.5 mmHgLVOT Vmax0.8 m/s AoV VTI1.5 mAo Mean GR85.3 mmHgLVOT VTI0.25 m RITA (VMAX)0.62 cm2Al P1/2T223 msAVA (VTI) 0.7 cm2 Mitral Valve MV E Vmax97.2 cm/sDECEL [id number] ms MV A Vmax74.7 cm/sP 1/2 T70 ms E/A ratio1.3MVA (PHT)3.1 cm2 TDI E/E' [id number]/E' [id number] Medial E' Peak V4.61 cm/sLateral E' Peak V6.17 cm/s Pulmonary Valve PV Vmax1.0 m/sPV VTI0.23 mPV Mean GR2.4 mmHg PV Peak GR3.7 mmHg Tricuspid Valve TR Vmax1.8 m/sRAP (EST) 15 vcHcZAZN49.5 mmHg TR Peak GR14.5 mmHg Left Ventricle The left ventricle is normal size. There is normal LV segmental wall motion. There is normal left anisa tricular wall thickness. LVEF is 50-55%. Stage I diastolic dysfunction. Right Ventricle The right ventricle is normal size. The right ventricular systolic function is normal. Atria The left atrium is severely dilated. LASVI 50mL/m The right atrium is moderately dilated. Aortic Valve The aortic valve is calcified with restricted opening. Moderate aortic regurgitation is present. Ther e is severe aortic valvular stenosis. Pk gradient 155.0mmHg, mean gradient 101mmHg. AoV 0.6cm Mitral Valve The mitral valve is normal in structure. There is no mitral valve regurgitation noted. There is no mi tral valve stenosis. Tricuspid Valve The tricuspid valve is normal in structure. There is trace of tricuspid valve regurgitation noted. Pulmonic Valve The pulmonary valve is normal in structure. There is no pulmonic valvular regurgitation. Great Vessels The aortic root is normal in size. The IVC collapses <50% with inspiration. Pericardium There is small pericardial effusion. No echo indications of pericardial tamponade. Other Information Quality : Adequate Conclusion LVEF is 50-55%. Stage I diastolic dysfunction. There is normal LV segmental wall motion. The left atrium is severely dilated. LASVI 50mL/m The right atrium is moderately dilated. The aortic valve is calcified with restricted opening. Moderate aortic regurgitation is present. There is severe aortic valvular stenosis. Pk gradient 155.0mmHg, mean gradient 101mmHg. AoV 0.6cm The aortic root is normal in size.
[2025-03-24] VITALS (7 sets, daily range): BP systolic 119–135; BP diastolic 54–73; PULSE 67–77; RESP 20; TEMP 98.3–98.8; O2SAT 96–97
[2025-03-24 04:35] LABS: NUCLEATED RED BLOOD CELLS 0.0 % (0.0-0.19); PLATELET COUNT (AUTO) 207.0 K/uL (130-400); RED BLOOD CELL COUNT(AUTO) 4.4 MIL/uL (4.50-6.20); RED CELL DISTRIBUTION WIDTH 13.4 % (11.0-15.5); WHITE BLOOD COUNT (AUTO) 6.5 K/uL (4.8-10.8)
[2025-03-24 05:00] LABS: ASPARTATE AMINOTRANSFERASE 16.0 U/L (10-37); CREATININE 1.0 mg/dL (0.5-1.3); GLOMERULAR FILTR. RATE CALC 79.0 mL/min (>90); GLUCOSE,RANDOM 99.0 mg/dL (70-105); SODIUM SERUM 139.0 mmol/L (136-145); TOTAL PROTEIN, SERUM 6.8 g/dL (6.0-8.3); UREA NITROGEN, BLOOD 23.0 mg/dL (7-18)
--- NOTE | 2025-03-24 08:18 | PN ---
[facility] CARDIOLOGY PROGRESS NOTE Date Patient Seen: Mar 24, 2025 Time of Visit: 08:14 Problem List: Syncope Critical symptomatic aortic stenosis Non ST segment elevation myocardial infarction Mild coronary atherosclerosis Hypertension Interval History: Patient was seen by CT surgery consultation yesterday and recommendation was the same which was to proceed with TAVR. Patient has no recurrent symptoms. Physical Examination: GENERAL: [No acute distress speaks Thai only.] HEAD: [Evidence of trauma from fall and syncope no change.] EYES: [PERRLA, EOMI, conjunctiva and sclera normal.] ENT: [Hearing grossly intact, normal oropharynx.] NECK: [Supple without JVD. There is no tenderness, lymphadenopathy, or masses. No thyromegaly. Normal carotid upstrokes without bruits.] LUNGS: Clear to auscultation anteriorly and posteriorly] HEART: [Normal rate and rhythm. Normal S1 and S2 loud 4/6 crescendo decrescendo murmur late peaking VASC: [Peripheral pulses +2 bilaterally.] ABD: [Bowel sounds normal, soft, nontender, no masses, no organomegaly. No audible bruits.] : [Not examined] LYMPH: [No lymphadenopathy noted.] EXT: [No clubbing, cyanosis or edema.] SKIN: [No rashes or lesions noted.] NEURO: [Awake, alert, and oriented x3. No focal sensory or strength deficits noted.] Laboratory: [ ] Hematology Labs: Test 03/24/25 04:21 03/23/25 04:12 03/22/25 15:30 Range/Units White Blood Count 6.5 4.8-10.8 K/uL Red Blood Count 4.40 L 4.50-6.20 MIL/uL Hemoglobin 12.5 L 14.0-18.0 g/dL Hematocrit 37.6 L 42-54 % Mean Corpuscular Volume 85.5 79-99 fL Mean Corpuscular Hemoglobin 28.4 27.0-33.0 pg Mean Corpuscular Hemoglobin Concent 33.2 32.0-36.0 g/dL Red Cell Distribution Width 13.4 11.0-15.5 % Platelet Count 207 130-400 K/uL Mean Platelet Volume 10.4 7.5-10.5 fL Nucleated Red Blood Cells 0.0 0.0-0.19 % Immature Granulocyte % (Auto) 0.4 0-1 % Neutrophils (%) (Auto) 73.3 40.0-77.0 % Lymphocytes (%) (Auto) 17.5 L 21.0-51.0 % Monocytes (%) (Auto) 7.7 3.0-13.0 % Eosinophils (%) (Auto) 1.0 0.0-8.0 % Basophils (%) (Auto) 0.1 0.0-5.0 % Neutrophils # (Auto) 5.7 1.8-7.7 K/uL Lymphocytes # (Auto) 1.4 1.0-4.8 K/uL Monocytes # (Auto) 0.6 0.1-1.0 K/uL Eosinophils # (Auto) 0.08 0.00-0.70 K/uL Basophils # (Auto) 0.01 0.00-0.20 K/uL Absolute Immature Granulocyte (auto 0.03 0-1 K/uL White Cell Morphology Comment See comments Chemistry Labs: Test 03/24/25 04:57 03/24/25 04:21 03/23/25 04:12 03/22/25 15:56 Range/Units Whole Blood Glucose 104 70-110 MG/DL Sodium Level 139 136-145 mmol/L Potassium Level 4.0 3.5-5.1 mmol/L Chloride Level 104 101-111 mmol/L Carbon Dioxide Level 28 21-32 mmol/L Blood Urea Nitrogen 23 H 7-18 mg/dL Creatinine 1.0 0.5-1.3 mg/dL Glomerular Filtration Rate Calc 79 >90 mL/min Random Glucose 99 70-105 mg/dL Total Calcium 8.3 L 8.5-10.1 mg/dL Magnesium Level 1.90 1.80-2.40 mg/dL Total Bilirubin 0.6 0.2-1.0 mg/dL Aspartate Amino Transf (AST/SGOT) 16 10-37 U/L Alanine Aminotransferase (ALT/SGPT) 21 12-78 U/L Alkaline Phosphatase 67 50-136 U/L Total Protein 6.8 6.0-8.3 g/dL Albumin 3.0 L 3.5-5.0 g/dL Total Creatine Kinase 149 # 21-232 U/L Troponin I High Sensitivity 1799.4 *H 4-75 ng/L Bedside Glucose Comment Notified Nurse Test 03/22/25 15:30 Range/Units Hemoglobin A1c 6.3 H 4.0-6.0 % Estimated Average Glucose (eAG) 134 H 70-126 mg/dL Lactic Acid Level 1.5 0.8-2.5 mmol/L B-Type Natriuretic Peptide 1330 H 0-100 pg/mL Triglycerides Level 102 30-200 mg/dL Cholesterol Level 136 <200 mg/dL LDL Cholesterol 70 0-99 mg/dL HDL Cholesterol 58 29-71 mg/dL Thyroid Stimulating Hormone (TSH) 1.00 0.36-3.74 uIU/mL Coagulation Labs: Test 03/23/25 10:07 03/22/25 15:30 Range/Units Activated Partial Thromboplast Time 54.1 H 26.3-35.5 SEC Prothrombin Time 10.8 9.6-11.6 SEC Prothromb Time International Ratio 1.02 0.85-1.15 Diagnostics / Radiology: ECHO has been performed still with evidence of critical aortic stenosis but with preserved left ventricular function Impression and Plan: Critical aortic stenosis symptomatic Patient has been seen by CT surgery and recommendations are the same is to proceed with a TAVR evaluation. CT angio with TAVR protocol will be scheduled for today. Patient will continue with beta blockade and we will institute SHARMIN inhibition ARB as blood pressure tolerates considering elevated cardiac enzymes. Non ST segment elevation myocardial infarction Continue with dual antiplatelet therapy with statin we will discontinue heparin initiate a/ARB as blood pressure tolerates. ANDREY BURNS MD Mar 24, 2025 08:18
[2025-03-24] MEDS: BACITRACIN 28.4 GM OINT TP SCH (09:17)
--- NOTE | 2025-03-24 11:28 | PN ---
[facility] PROGRESS NOTE Date of Service: Mar 24, 2025 Time of Service: 11:22 SUBJECTIVE: 03/23 patient remains admitted to the PCU, hemodynamically stable, afebrile, saturating normal on room air. Hemoglobin and hematocrit stable, CMP remarkable, latest troponin 1799. Echocardiogram pending At the time of my visit patient comfortably in bed, alert oriented x3, denies dizziness, no headache, no chest pain, no shortness a breath, no nausea, no vomiting, no abdominal pain, no diarrhea, no constipation, and daughter at bedside. Patient with small laceration to the right frontal area, wound care consultation requested. Continue to follow Cardiology input and recommendation, echocardiogram done, pending report, continue aspirin 81 mg p.o. daily, losartan 50 mg p.o. daily, atorvastatin 40 mg p.o. at bedtime. Cardiology input noted and appreciated, patient had left heart catheterization in November, demonstrating nonobstructive CAD. Echocardiogram in October demonstrated severe aortic stenosis with an estimated RITA of 0.2-0.4 cm. He was evaluated by Cardiothoracic surgeon and was believed to be a good candidate for TAVR. Patient now presented after a fall, diagnosed with non-STEMI, on heparin drip. From cardiology standpoint, further recommendations will depend on ejection fraction on repeat echocardiogram, if it shows improvement, then he will be considered for surgical AVR, if on the other hand remains low, patient can be discharged home and follow up as an outpatient for TAVR with a Dr. Luke and Dr. Rivers in [place]. 03/24 patient with a history of severe aortic stenosis, transferred from [facility] after sustaining a fall where he hit the front of the head. Cardiothoracic surgery consultation requested, CT angio TAVR protocol requested, we will follow up. patient remains admitted to the PCU, hemodynamically stable, afebrile, saturating normal on room air. Hemoglobin stable 12.5, hematocrit 37.6. CMP is unremarkable. Echocardiogram reported as follows: LVEF is 50-55%. Stage I diastolic dysfunction. There is normal LV segmental wall motion. The left atrium is severely dilated. LASVI 50mL/m The right atrium is moderately dilated. The aortic valve is calcified with restricted opening. Moderate aortic regurgitation is present. There is severe aortic valvular stenosis. Pk gradient 155.0mmHg, mean gradient 101mmHg. AoV 0.6cm The aortic root is normal in size. At the time of my visit, patient comfortably in bed, alert oriented x3, case discussed with the RN, no acute events overnight, no chest pain, shortness shortness for breath, no nausea, no vomiting. REVIEW OF SYSTEMS CONSTITUTIONAL: Denies fevers, chills, or night sweats. No unintentional weight loss reported. NEUROLOGICAL: Fall yesterday ENT: No hearing loss, otalgia, otorrhea, rhinitis, rhinorrhea, hoarseness, or sore throat. CARDIOVASCULAR: Chest pain PULMONARY: Denies any shortness of breath, cough, phlegm/sputum, hemoptysis, pleuritic chest pain. SLEEP: Denies morning headaches, daytime somnolence or napping. Denies difficulty falling asleep, staying asleep, waking from sleep. Denies knowledge of snoring. GASTROINTESTINAL: Denies any type of dysphagia to either liquids or solids. Denies nausea, vomiting, pyrosis, early satiety, abdominal pain, diarrhea, constipation, or changes in stool consistency or caliber. Denies coffee-ground emesis, hematemesis, hematochezia, or melanotic stools. GENITOURINARY: Denies frequency, urgency, nocturia, hematuria or incontinence (Storage/Irritative symptoms.) Low urinary stream, straining to void, urinary intermittency or hesitancy, splitting of the voiding stream, terminal dribbling. ENDOCRINOLOGIC: Denies polyuria, polydipsia, polyphagia or heat/cold intolerances. HEMATOLOGIC: Denies thrombophilia/previous clots, or coagulopathy/bleeding disorders. ONCOLOGIC: Denies personal history of malignancy. DERMATOLOGIC: Denies rashes or pruritus. PSYCHIATRIC: Denies any suicidal or homicidal ideation. Denies hallucinations. PHYSICAL EXAM: GENERAL APPEARANCE: The patient is awake, alert, and oriented, in no acute cardiopulmonary distress. NEUROLOGICAL: Cranial nerves II-XII grossly intact. Motor is 5/5 in bilateral upper and lower extremities proximal to distal. No sensory deficits. HEENT: Face is symmetric. Pupils are equal and reactive. Extraocular movements are intact. NECK: Supple. No JVD. No thyromegaly. No submental, submandibular, pre-/ postauricular, occipital or supraclavicular lymphadenopathy. CHEST: Normal chest expansion. No Telemetry. LUNGS: Absence of any rales, rhonchi or any wheezing. CARDIOVASCULAR: Regular. 3/6 systolic murmur noted in the 2nd right intercostal space ABDOMEN: Soft, nontender, and nondistended. There is no rebound, voluntary guarding, or rigidity. : Deferred. No [place]. EXTREMITIES: Non-edematous and not cyanotic. No clubbing. Good capillary ref ill. SKIN: No skin breakdown. Vital Signs (last 8hr) Date Time Temp Pulse Resp B/P (MAP) Pulse Ox O2 Delivery O2 Flow Rate FiO2 03/24/25 07:48 98.8 73 20 120/69 98 Room Air 03/24/25 04:00 98.4 67 20 119/54 95 Room Air LABS: Laboratory: Test 03/24/25 04:57 03/24/25 04:21 03/23/25 10:07 03/23/25 04:12 Range/Units Whole Blood Glucose 104 70-110 MG/DL White Blood Count 6.5 4.8-10.8 K/uL Red Blood Count 4.40 L 4.50-6.20 MIL/uL Hemoglobin 12.5 L 14.0-18.0 g/dL Hematocrit 37.6 L 42-54 % Mean Corpuscular Volume 85.5 79-99 fL Mean Corpuscular Hemoglobin 28.4 27.0-33.0 pg Mean Corpuscular Hemoglobin Concent 33.2 32.0-36.0 g/dL Red Cell Distribution Width 13.4 11.0-15.5 % Platelet Count 207 130-400 K/uL Mean Platelet Volume 10.4 7.5-10.5 fL Nucleated Red Blood Cells 0.0 0.0-0.19 % Sodium Level 139 136-145 mmol/L Potassium Level 4.0 3.5-5.1 mmol/L Chloride Level 104 101-111 mmol/L Carbon Dioxide Level 28 21-32 mmol/L Blood Urea Nitrogen 23 H 7-18 mg/dL Creatinine 1.0 0.5-1.3 mg/dL Glomerular Filtration Rate Calc 79 >90 mL/min Random Glucose 99 70-105 mg/dL Total Calcium 8.3 L 8.5-10.1 mg/dL Magnesium Level 1.90 1.80-2.40 mg/dL Total Bilirubin 0.6 0.2-1.0 mg/dL Aspartate Amino Transf (AST/SGOT) 16 10-37 U/L Alanine Aminotransferase (ALT/SGPT) 21 12-78 U/L Alkaline Phosphatase 67 50-136 U/L Total Protein 6.8 6.0-8.3 g/dL Albumin 3.0 L 3.5-5.0 g/dL Activated Partial Thromboplast Time 54.1 H 26.3-35.5 SEC Immature Granulocyte % (Auto) 0.4 0-1 % Neutrophils (%) (Auto) 73.3 40.0-77.0 % Lymphocytes (%) (Auto) 17.5 L 21.0-51.0 % Monocytes (%) (Auto) 7.7 3.0-13.0 % Eosinophils (%) (Auto) 1.0 0.0-8.0 % Basophils (%) (Auto) 0.1 0.0-5.0 % Neutrophils # (Auto) 5.7 1.8-7.7 K/uL Lymphocytes # (Auto) 1.4 1.0-4.8 K/uL Monocytes # (Auto) 0.6 0.1-1.0 K/uL Eosinophils # (Auto) 0.08 0.00-0.70 K/uL Basophils # (Auto) 0.01 0.00-0.20 K/uL Absolute Immature Granulocyte (auto 0.03 0-1 K/uL Total Creatine Kinase 149 # 21-232 U/L Troponin I High Sensitivity 1799.4 *H 4-75 ng/L Test 03/22/25 15:56 03/22/25 15:30 Range/Units Bedside Glucose Comment Notified Nurse White Cell Morphology Comment See comments Prothrombin Time 10.8 9.6-11.6 SEC Prothromb Time International Ratio 1.02 0.85-1.15 Hemoglobin A1c 6.3 H 4.0-6.0 % Estimated Average Glucose (eAG) 134 H 70-126 mg/dL Lactic Acid Level 1.5 0.8-2.5 mmol/L B-Type Natriuretic Peptide 1330 H 0-100 pg/mL Triglycerides Level 102 30-200 mg/dL Cholesterol Level 136 <200 mg/dL LDL Cholesterol 70 0-99 mg/dL HDL Cholesterol 58 29-71 mg/dL Thyroid Stimulating Hormone (TSH) 1.00 0.36-3.74 uIU/mL Current Medications Medications (Trade) Dose Ordered Sig/Dotty Route PRN Reason Start Time Stop Time Status Last Admin Dose Admin Acetaminophen (TYLenol 325MG TAB) 650 mg Q6H PRN PO MILD PAIN (1-3) 03/22/25 15:30 04/21/25 15:29 03/23/25 20:50 650 MG Aspirin (Aspirin 81mg Chew Tab) 81 mg DAILY PO 03/23/25 09:00 04/22/25 08:59 03/24/25 09:16 81 MG Atorvastatin Calcium (LIPItor 40MG) 40 mg HS PO 03/22/25 21:00 04/21/25 20:59 03/23/25 20:51 40 MG Bacitracin (Bacitracin 28.4gm) apply to forehead DAILY TP 03/24/25 09:00 04/23/25 08:59 03/24/25 09:17 1 GM Famotidine (Pepcid 20mg Tab) 20 mg Q48H PO 03/22/25 21:00 04/21/25 20:59 03/22/25 20:36 20 MG Heparin Sodium (Porcine) (HEParin 5,000 UNIT VIAL) *calculation based on ACTUAL B... AD PRN IV HEPARIN PROTOCOL 03/22/25 17:30 03/24/25 07:35 DC 03/22/25 17:01 3,000 UNIT Heparin Sodium/ Dextrose 250 ml @ 0 mls/hr Q6H IV 03/22/25 17:30 03/24/25 07:13 DC 03/23/25 22:16 10.17 MLS/HR Insulin Human Regular (humuLIN R 100 UNIT/ML 3ML) INSULIN SLIDING SCAL... ACHS SQ 03/22/25 16:30 04/21/25 16:29 03/23/25 20:58 2 UNIT Losartan Potassium (CozAAR 50 mg TAB) 50 mg DAILY PO 03/23/25 09:00 04/22/25 08:59 03/24/25 09:16 50 MG Magnesium Sulfate 50 ml @ 0 mls/hr PROTOCOL IV 03/22/25 15:30 04/21/25 15:29 03/24/25 05:50 25 MLS/HR Metoprolol Succinate (TopROL XL) 25 mg DAILY PO 03/24/25 09:00 04/23/25 08:59 03/24/25 09:16 25 MG Nitroglycerin (Nitrostat) 0.4 mg AD SL 03/22/25 16:30 04/21/25 16:29 Ondansetron HCl (zoFRAN 4MG INJ) 4 mg Q6H PRN IVP NAUSEA/VOMITING 03/22/25 15:30 04/21/25 15:29 Potassium Chloride 100 ml @ 100 mls/hr AD PRN IV POTASSIUM PROTOCOL 03/22/25 15:30 04/21/25 15:29 Potassium Chloride (K-Dur/Klor-Con 20meq) 20 meq AD PRN PO POTASSIUM PROTOCOL 03/22/25 15:30 04/21/25 15:29 Potassium Chloride (KCl 10% Elixir 20meq/15ml) 20 meq AD PRN PO POTASSIUM PROTOCOL 03/22/25 15:30 04/21/25 15:29 Tamsulosin HCl (FloMAX) 0.4 mg DAILY PO 03/23/25 09:00 04/22/25 08:59 03/24/25 09:16 0.4 MG Trazodone HCl (DesyREL/OlepTRO) 50 mg HS PO 03/22/25 21:00 04/21/25 20:59 03/23/25 20:51 50 MG DIAGNOSTICS / RADIOLOGY: [ ] ASSESSMENT: Status post fall, POA History of severe/critical aortic stenosis, POA History of nonobstructive coronary artery disease, POA NSTEMI, likely type II, POA History of [id number] mitral regurgitation, POA History of moderate aortic regurgitation, POA History of subdural hematoma in 02/2024, POA History of nonischemic cardiomyopathy with LVEF of 30-35%, POA Hypertension, POA Hyperlipidemia, POA Type 2 diabetes mellitus, POA PLAN: Cardiothoracic surgery consultation requested, CT angio TAVR protocol requested, we will follow up. NEURO: Minimize central acting medications as possible. Fall Precautions. Well lighted room through the day and minimize interruptions through the night to prevent acute delirium. PULMONARY: Supplemental 02 as needed BiPAP as necessary, for respiratory distress Titrate Fio2 to keep Spo2 > or = 90% DuoNebs and CPT as needed IS hourly while awake for pulmonary hygiene prn Out of bed to chair as tolerated Maintain aspiration precautions at all times CARDIOVASCULAR: Follow hemodynamics. Vital signs per facility protocol GI & NUTRITION: Continue nutritional support Aspirations precautions Prokinetic agents and laxatives as needed KIDNEYS & ELECTROLYTES: Strict monitoring of intake and output Daily weights Avoid nephrotoxic agents Monitor electrolytes and replace as needed Goal urine output of 30mL/hr or 0.5mL/kg/hr Medications to be dosed according to renal function. Avoid contrast if possible ENDOCRINE: Maintain blood glucose between 100-180 at all times. Insulin sliding scale for blood glucose management Hypoglycemia and hyperglycemia protocol in place INFECTIOUS DISEASE: Trend temperature, WBC and procalcitonin level Follow cultures, deescalate antibiotics as soon as possible. Panculture if new onset fever HEMATOLOGY & COAGULATION: Monitor H&H. Keep Hgb > 7 Transfuse 1 unit of PRBC for Hgb < 7 Transfuse 1 pack of platelets of platelets < 20, 000 Watch for any signs and symptoms of bleeding SKIN: Pressure ulcer prevention per facility protocol Specialty mattress as needed ORTHO/REHAB Continue PT/OT PRN: MEDICATIONS Tylenol 650 mg po every 4 hrs for fever zofran 4 mg IV every 6 hrs for n/v Hydralazine 5 mg IV every 4 hrs systolic pressure > 160 bowel regiment: lactulose 20 gm PO BID PRN constipation Supportive measures: Continue GI and DVT prophylaxis Disposition: Pending improvement in clinical condition and echocardiogram report All questions answered time spent: > 35 min ULICES DOVER MD Mar 24, 2025 11:28
[2025-03-24] MEDS ORDERED: IOHEXOL 350 MG/ML 100ML INFUS..BTL IV ONE (12:30)
[2025-03-24] MEDS: LACTULOSE 20 GM/30 ML UDCUP PO SCH (20:00)
[2025-03-25] VITALS (7 sets, daily range): BP systolic 95–145; BP diastolic 41–81; PULSE 59–75; RESP 18–20; TEMP 97.6–98.4; O2SAT 94–98
--- NOTE | 2025-03-25 07:51 | PN ---
[facility] Cardiology Progress Note CARDIOLOGY PROGRESS NOTE MARCH 25, 2025 Problems: 1. Syncope 2. Symptomatic severe aortic stenosis 3. Non ST-elevation FL 4. Nonobstructive coronary artery disease had recent cardiac catheterization 5. Hypertension Blood pressure is running 90-130 systolic. Heart rate in the 60s the patient is afebrile. White count 6.5 hemoglobin 12.5 platelet count [id number]. Glucose 103. Yesterday creatinine 1.0. Echo shows ejection fraction of 50-55%. This patient has been here in November of this year and had an ejection fraction of 30-35%. He was deemed a high surgical risk patient and advised to have TAVR. Did not follow up in the office and presented to [facility] with syncope and a non ST-elevation FL. his current ejection fraction has improved 55%. He has been re-evaluated by CT surgery believes the patient is still a poor candidate for surgical valve replacement. Plans are for a TAVR valve. He had a CT aortogram with TAVR protocol performed reports are still pending. The patient continues on aspirin atorvastatin insulin scale metoprolol succinate tamsulosin potassium protocol and trazodone. We will review his CT images when available. We will consider transferred to [place] next week for a TAVR valve. KOMAL COLLADO MD Mar 25, 2025 07:51
--- NOTE | 2025-03-25 08:22 | PN ---
[facility] PROGRESS NOTE Date of Service: Mar 25, 2025 Time of Service: 08:22 SUBJECTIVE: 03/23 patient remains admitted to the PCU, hemodynamically stable, afebrile, saturating normal on room air. Hemoglobin and hematocrit stable, CMP remarkable, latest troponin 1799. Echocardiogram pending At the time of my visit patient comfortably in bed, alert oriented x3, denies dizziness, no headache, no chest pain, no shortness a breath, no nausea, no vomiting, no abdominal pain, no diarrhea, no constipation, and daughter at bedside. Patient with small laceration to the right frontal area, wound care consultation requested. Continue to follow Cardiology input and recommendation, echocardiogram done, pending report, continue aspirin 81 mg p.o. daily, losartan 50 mg p.o. daily, atorvastatin 40 mg p.o. at bedtime. Cardiology input noted and appreciated, patient had left heart catheterization in November, demonstrating nonobstructive CAD. Echocardiogram in October demonstrated severe aortic stenosis with an estimated RITA of 0.2-0.4 cm. He was evaluated by Cardiothoracic surgeon and was believed to be a good candidate for TAVR. Patient now presented after a fall, diagnosed with non-STEMI, on heparin drip. From cardiology standpoint, further recommendations will depend on ejection fraction on repeat echocardiogram, if it shows improvement, then he will be considered for surgical AVR, if on the other hand remains low, patient can be discharged home and follow up as an outpatient for TAVR with a Dr. Luke and Dr. Rivers in [place]. 03/24 patient with a history of severe aortic stenosis, transferred from [facility] after sustaining a fall where he hit the front of the head. Cardiothoracic surgery consultation requested, CT angio TAVR protocol requested, we will follow up. patient remains admitted to the PCU, hemodynamically stable, afebrile, saturating normal on room air. Hemoglobin stable 12.5, hematocrit 37.6. CMP is unremarkable. Echocardiogram reported as follows: LVEF is 50-55%. Stage I diastolic dysfunction. There is normal LV segmental wall motion. The left atrium is severely dilated. LASVI 50mL/m The right atrium is moderately dilated. The aortic valve is calcified with restricted opening. Moderate aortic regurgitation is present. There is severe aortic valvular stenosis. Pk gradient 155.0mmHg, mean gradient 101mmHg. AoV 0.6cm The aortic root is normal in size. At the time of my visit, patient comfortably in bed, alert oriented x3, case discussed with the RN, no acute events overnight, no chest pain, shortness shortness for breath, no nausea, no vomiting. 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 He denies chest pain or shortness for breath no nausea vomiting or diarrhea. He spoke with the CT surgeon this morning and there was a discussion about possibly having his TAVR done in [facility]. REVIEW OF SYSTEMS CONSTITUTIONAL: Denies fevers, chills, or night sweats. No unintentional weight loss reported. NEUROLOGICAL: Fall yesterday ENT: No hearing loss, otalgia, otorrhea, rhinitis, rhinorrhea, hoarseness, or sore throat. CARDIOVASCULAR: Chest pain PULMONARY: Denies any shortness of breath, cough, phlegm/sputum, hemoptysis, pleuritic chest pain. SLEEP: Denies morning headaches, daytime somnolence or napping. Denies difficulty falling asleep, staying asleep, waking from sleep. Denies knowledge of snoring. GASTROINTESTINAL: Denies any type of dysphagia to either liquids or solids. Denies nausea, vomiting, pyrosis, early satiety, abdominal pain, diarrhea, constipation, or changes in stool consistency or caliber. Denies coffee-ground emesis, hematemesis, hematochezia, or melanotic stools. GENITOURINARY: Denies frequency, urgency, nocturia, hematuria or incontinence (Storage/Irritative symptoms.) Low urinary stream, straining to void, urinary intermittency or hesitancy, splitting of the voiding stream, terminal dribbling. ENDOCRINOLOGIC: Denies polyuria, polydipsia, polyphagia or heat/cold intolerances. HEMATOLOGIC: Denies thrombophilia/previous clots, or coagulopathy/bleeding disorders. ONCOLOGIC: Denies personal history of malignancy. DERMATOLOGIC: Denies rashes or pruritus. PSYCHIATRIC: Denies any suicidal or homicidal ideation. Denies hallucinations. PHYSICAL EXAM: GENERAL APPEARANCE: The patient is awake, alert, and oriented, in no acute cardiopulmonary distress. NEUROLOGICAL: Cranial nerves II-XII grossly intact. Motor is 5/5 in bilateral upper and lower extremities proximal to distal. No sensory deficits. HEENT: Face is symmetric. Pupils are equal and reactive. Extraocular movements are intact. NECK: Supple. No JVD. No thyromegaly. No submental, submandibular, pre- /postauricular, occipital or supraclavicular lymphadenopathy. CHEST: Normal chest expansion. No Telemetry. LUNGS: Absence of any rales, rhonchi or any wheezing. CARDIOVASCULAR: Regular. 3/6 systolic murmur noted in the 2nd right i ntercostal space ABDOMEN: Soft, nontender, and nondistended. There is no rebound, voluntary g uarding, or rigidity. : Deferred. No [place]. EXTREMITIES: Non-edematous and not cyanotic. No clubbing. Good capillary refill. SKIN: Multiple abrasions noted to forehead chin as well as bilateral knees no evidence of inflammation associated with these abrasions. Vital Signs (last 8hr) Date Time Temp Pulse Resp B/P (MAP) Pulse Ox O2 Delivery O2 Flow Rate FiO2 03/25/25 07:00 98.1 72 18 133/61 96 Room Air 03/25/25 04:45 98.4 68 18 95/41 94 Room Air LABS: Laboratory: Test 03/25/25 05:51 03/24/25 04:21 03/23/25 10:07 Range/Units Whole Blood Glucose 103 # 70-110 MG/DL White Blood Count 6.5 4.8-10.8 K/uL Red Blood Count 4.40 L 4.50-6.20 MIL/uL Hemoglobin 12.5 L 14.0-18.0 g/dL Hematocrit 37.6 L 42-54 % Mean Corpuscular Volume 85.5 79-99 fL Mean Corpuscular Hemoglobin 28.4 27.0-33.0 pg Mean Corpuscular Hemoglobin Concent 33.2 32.0-36.0 g/dL Red Cell Distribution Width 13.4 11.0-15.5 % Platelet Count 207 130-400 K/uL Mean Platelet Volume 10.4 7.5-10.5 fL Nucleated Red Blood Cells 0.0 0.0-0.19 % Sodium Level 139 136-145 mmol/L Potassium Level 4.0 3.5-5.1 mmol/L Chloride Level 104 101-111 mmol/L Carbon Dioxide Level 28 21-32 mmol/L Blood Urea Nitrogen 23 H 7-18 mg/dL Creatinine 1.0 0.5-1.3 mg/dL Glomerular Filtration Rate Calc 79 >90 mL/min Random Glucose 99 70-105 mg/dL Total Calcium 8.3 L 8.5-10.1 mg/dL Magnesium Level 1.90 1.80-2.40 mg/dL Total Bilirubin 0.6 0.2-1.0 mg/dL Aspartate Amino Transf (AST/SGOT) 16 10-37 U/L Alanine Aminotransferase (ALT/SGPT) 21 12-78 U/L Alkaline Phosphatase 67 50-136 U/L Total Protein 6.8 6.0-8.3 g/dL Albumin 3.0 L 3.5-5.0 g/dL Activated Partial Thromboplast Time 54.1 H 26.3-35.5 SEC Current Medications Medications (Trade) Dose Ordered Sig/Dotty Route PRN Reason Start Time Stop Time Status Last Admin Dose Admin Acetaminophen (TYLenol 325MG TAB) 650 mg Q6H PRN PO MILD PAIN (1-3) 03/22/25 15:30 04/21/25 15:29 03/24/25 20:02 650 MG Aspirin (Aspirin 81mg Chew Tab) 81 mg DAILY PO 03/23/25 09:00 04/22/25 08:59 03/24/25 09:16 81 MG Atorvastatin Calcium (LIPItor 40MG) 40 mg HS PO 03/22/25 21:00 04/21/25 20:59 03/24/25 20:00 40 MG Bacitracin (Bacitracin 28.4gm) apply to forehead DAILY TP 03/24/25 09:00 04/23/25 08:59 03/24/25 09:17 1 GM Famotidine (Pepcid 20mg Tab) 20 mg Q48H PO 03/22/25 21:00 04/21/25 20:59 03/24/25 20:00 20 MG Heparin Sodium (Porcine) (HEParin 5,000 UNIT VIAL) *calculation based on ACTUAL B... AD PRN IV HEPARIN PROTOCOL 03/22/25 17:30 03/24/25 07:35 DC 03/22/25 17:01 3,000 UNIT Heparin Sodium/ Dextrose 250 ml @ 0 mls/hr Q6H IV 03/22/25 17:30 03/24/25 07:13 DC 03/23/25 22:16 10.17 MLS/HR Insulin Human Regular (humuLIN R 100 UNIT/ML 3ML) INSULIN SLIDING SCAL... ACHS SQ 03/22/25 16:30 04/21/25 16:29 03/24/25 20:03 3 UNIT Lactulose (Constulose 20gm/ 30ml Udcup) 20 gm ONCE PO 03/24/25 18:43 03/24/25 22:45 DC 03/24/25 20:00 20 GM Losartan Potassium (CozAAR 50 mg TAB) 50 mg DAILY PO 03/23/25 09:00 04/22/25 08:59 03/24/25 09:16 50 MG Magnesium Sulfate 50 ml @ 0 mls/hr PROTOCOL IV 03/22/25 15:30 04/21/25 15:29 03/24/25 05:50 25 MLS/HR Metoprolol Succinate (TopROL XL) 25 mg DAILY PO 03/24/25 09:00 04/23/25 08:59 03/24/25 09:16 25 MG Nitroglycerin (Nitrostat) 0.4 mg AD SL 03/22/25 16:30 04/21/25 16:29 Ondansetron HCl (zoFRAN 4MG INJ) 4 mg Q6H PRN IVP NAUSEA/VOMITING 03/22/25 15:30 04/21/25 15:29 Potassium Chloride 100 ml @ 100 mls/hr AD PRN IV POTASSIUM PROTOCOL 03/22/25 15:30 04/21/25 15:29 Potassium Chloride (K-Dur/Klor-Con 20meq) 20 meq AD PRN PO POTASSIUM PROTOCOL 03/22/25 15:30 04/21/25 15:29 Potassium Chloride (KCl 10% Elixir 20meq/15ml) 20 meq AD PRN PO POTASSIUM PROTOCOL 03/22/25 15:30 04/21/25 15:29 Tamsulosin HCl (FloMAX) 0.4 mg DAILY PO 03/23/25 09:00 04/22/25 08:59 03/24/25 09:16 0.4 MG Trazodone HCl (DesyREL/OlepTRO) 50 mg HS PO 03/22/25 21:00 04/21/25 20:59 03/24/25 20:00 50 MG DIAGNOSTICS / RADIOLOGY: [ ] ASSESSMENT: Status post fall, POA History of severe/critical aortic stenosis, POA History of nonobstructive coronary artery disease, POA NSTEMI, likely type II, POA History of nasa-[id number] mitral regurgitation, POA History of moderate aortic regurgitation, POA History of subdural hematoma in 02/2024, POA History of nonischemic cardiomyopathy with LVEF of 30-35%, POA Hypertension, POA Hyperlipidemia, POA Type 2 diabetes mellitus, POA PLAN: Cardiothoracic surgery consultation requested, CT angio TAVR protocol requested, we will follow up. NEURO: Minimize central acting medications as possible. Fall Precautions. Well lighted room through the day and minimize interruptions through the night to prevent acute delirium. PULMONARY: Supplemental 02 as needed BiPAP as necessary, for respiratory distress Titrate Fio2 to keep Spo2 > or = 90% DuoNebs and CPT as needed IS hourly while awake for pulmonary hygiene prn Out of bed to chair as tolerated Maintain aspiration precautions at all times CARDIOVASCULAR: Follow hemodynamics. Vital signs per facility protocol GI & NUTRITION: Continue nutritional support Aspirations precautions Prokinetic agents and laxatives as needed KIDNEYS & ELECTROLYTES: Strict monitoring of intake and output Daily weights Avoid nephrotoxic agents Monitor electrolytes and replace as needed Goal urine output of 30mL/hr or 0.5mL/kg/hr Medications to be dosed according to renal function. Avoid contrast if possible ENDOCRINE: Maintain blood glucose between 100-180 at all times. Insulin sliding scale for blood glucose management Hypoglycemia and hyperglycemia protocol in place INFECTIOUS DISEASE: Trend temperature, WBC and procalcitonin level Follow cultures, deescalate antibiotics as soon as possible. Panculture if new onset fever HEMATOLOGY & COAGULATION: Monitor H&H. Keep Hgb > 7 Transfuse 1 unit of PRBC for Hgb < 7 Transfuse 1 pack of platelets of platelets < 20, 000 Watch for any signs and symptoms of bleeding SKIN: Pressure ulcer prevention per facility protocol Specialty mattress as needed ORTHO/REHAB Continue PT/OT PRN: MEDICATIONS Tylenol 650 mg po every 4 hrs for fever zofran 4 mg IV every 6 hrs for n/v Hydralazine 5 mg IV every 4 hrs systolic pressure > 160 bowel regiment: lactulose 20 gm PO BID PRN constipation Supportive measures: Continue GI and DVT prophylaxis Disposition: Pending improvement in clinical condition and echocardiogram report All questions answered time spent: > 35 min JENNIFER RIVERA MD Mar 25, 2025 08:22
[2025-03-26] VITALS (7 sets, daily range): BP systolic 96–160; BP diastolic 57–79; PULSE 60–92; RESP 18–20; TEMP 97.5–98.3; O2SAT 97
--- NOTE | 2025-03-26 08:49 | PN ---
[facility] PROGRESS NOTE Date of Service: Mar 26, 2025 Time of Service: 08:49 SUBJECTIVE: 03/23 patient remains admitted to the PCU, hemodynamically stable, afebrile, saturating normal on room air. Hemoglobin and hematocrit stable, CMP remarkable, latest troponin 1799. Echocardiogram pending At the time of my visit patient comfortably in bed, alert oriented x3, denies dizziness, no headache, no chest pain, no shortness a breath, no nausea, no vomiting, no abdominal pain, no diarrhea, no constipation, and daughter at bedside. Patient with small laceration to the right frontal area, wound care consultation requested. Continue to follow Cardiology input and recommendation, echocardiogram done, pending report, continue aspirin 81 mg p.o. daily, losartan 50 mg p.o. daily, atorvastatin 40 mg p.o. at bedtime. Cardiology input noted and appreciated, patient had left heart catheterization in November, demonstrating nonobstructive CAD. Echocardiogram in October demonstrated severe aortic stenosis with an estimated RITA of 0.2-0.4 cm. He was evaluated by Cardiothoracic surgeon and was believed to be a good candidate for TAVR. Patient now presented after a fall, diagnosed with non-STEMI, on heparin drip. From cardiology standpoint, further recommendations will depend on ejection fraction on repeat echocardiogram, if it shows improvement, then he will be considered for surgical AVR, if on the other hand remains low, patient can be discharged home and follow up as an outpatient for TAVR with a Dr. Luke and Dr. Rivers in [place]. 03/24 patient with a history of severe aortic stenosis, transferred from [facility] after sustaining a fall where he hit the front of the head. Cardiothoracic surgery consultation requested, CT angio TAVR protocol requested, we will follow up. patient remains admitted to the PCU, hemodynamically stable, afebrile, saturating normal on room air. Hemoglobin stable 12.5, hematocrit 37.6. CMP is unremarkable. Echocardiogram reported as follows: LVEF is 50-55%. Stage I diastolic dysfunction. There is normal LV segmental wall motion. The left atrium is severely dilated. LASVI 50mL/m The right atrium is moderately dilated. The aortic valve is calcified with restricted opening. Moderate aortic regurgitation is present. There is severe aortic valvular stenosis. Pk gradient 155.0mmHg, mean gradient 101mmHg. AoV 0.6cm The aortic root is normal in size. At the time of my visit, patient comfortably in bed, alert oriented x3, case discussed with the RN, no acute events overnight, no chest pain, shortness shortness for breath, no nausea, no vomiting. 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 He denies chest pain or shortness for breath no nausea vomiting or diarrhea. He spoke with the CT surgeon this morning and there was a discussion about possibly having his TAVR done in [facility]. 03/26 patient seen and evaluated this morning. He still has some residual chest wall pain from the fall. His raccoon eyes are unchanged. He had a bowel movement yesterday and urinating without a problem today. Appetite is intact. REVIEW OF SYSTEMS CONSTITUTIONAL: Denies fevers, chills, or night sweats. No unintentional weight loss reported. NEUROLOGICAL: Fall yesterday ENT: No hearing loss, otalgia, otorrhea, rhinitis, rhinorrhea, hoarseness, or sore throat. CARDIOVASCULAR: Chest pain PULMONARY: Denies any shortness of breath, cough, phlegm/sputum, hemoptysis, pleuritic chest pain. SLEEP: Denies morning headaches, daytime somnolence or napping. Denies difficulty falling asleep, staying asleep, waking from sleep. Denies knowledge of snoring. GASTROINTESTINAL: Denies any type of dysphagia to either liquids or solids. Denies nausea, vomiting, pyrosis, early satiety, abdominal pain, diarrhea, constipation, or changes in stool consistency or caliber. Denies coffee-ground emesis, hematemesis, hematochezia, or melanotic stools. GENITOURINARY: Denies frequency, urgency, nocturia, hematuria or incontinence (Storage/Irritative symptoms.) Low urinary stream, straining to void, urinary intermittency or hesitancy, splitting of the voiding stream, terminal dribbling. ENDOCRINOLOGIC: Denies polyuria, polydipsia, polyphagia or heat/cold intolerances. HEMATOLOGIC: Denies thrombophilia/previous clots, or coagulopathy/bleeding disorders. ONCOLOGIC: Denies personal history of malignancy. DERMATOLOGIC: Denies rashes or pruritus. PSYCHIATRIC: Denies any suicidal or homicidal ideation. Denies hallucinations. PHYSICAL EXAM: GENERAL APPEARANCE: The patient is awake, alert, and oriented, in no acute cardiopulmonary distress. NEUROLOGICAL: Cranial nerves II-XII grossly intact. Motor is 5/5 in bilateral upper and lower extremities proximal to distal. No sensory deficits. HEENT: Face is symmetric. Pupils are equal and reactive. Extraocular movements are intact. NECK: Supple. No JVD. No thyromegaly. No submental, submandibular, pre- /postauricular, occipital or supraclavicular lymphadenopathy. CHEST: Normal chest expansion. No Telemetry. LUNGS: Absence of any rales, rhonchi or any wheezing. CARDIOVASCULAR: Regular. 3/6 systolic murmur noted in the 2nd right intercostal space ABDOMEN: Soft, nontender, and nondistended. There is no rebound, voluntary guarding, or rigidity. : Deferred. No [place]. EXTREMITIES: Non-edematous and not cyanotic. No clubbing. Good capillary refill. SKIN: Multiple abrasions noted to forehead chin as well as bilateral knees no evidence of inflammation associated with these abrasions. Vital Signs (last 8hr) Date Time Temp Pulse Resp B/P (MAP) Pulse Ox O2 Delivery O2 Flow Rate FiO2 03/26/25 07:00 97.5 70 19 137/61 98 Room Air 03/26/25 04:00 98.1 78 18 118/67 98 Room Air LABS: Laboratory: Test 03/26/25 06:30 Range/Units Whole Blood Glucose 124 H 70-110 MG/DL Current Medications Medications (Trade) Dose Ordered Sig/Dotty Route PRN Reason Start Time Stop Time Status Last Admin Dose Admin Acetaminophen (TYLenol 325MG TAB) 650 mg Q6H PRN PO MILD PAIN (1-3) 03/22/25 15:30 04/21/25 15:29 03/25/25 20:16 650 MG Aspirin (Aspirin 81mg Chew Tab) 81 mg DAILY PO 03/23/25 09:00 04/22/25 08:59 03/26/25 08:19 81 MG Atorvastatin Calcium (LIPItor 40MG) 40 mg HS PO 03/22/25 21:00 04/21/25 20:59 03/25/25 19:59 40 MG Bacitracin (Bacitracin 28.4gm) apply to forehead DAILY TP 03/24/25 09:00 04/23/25 08:59 03/26/25 08:22 1 GM Famotidine (Pepcid 20mg Tab) 20 mg Q48H PO 03/22/25 21:00 04/21/25 20:59 03/24/25 20:00 20 MG Heparin Sodium (Porcine) (HEParin 5,000 UNIT VIAL) *calculation based on ACTUAL B... AD PRN IV HEPARIN PROTOCOL 03/22/25 17:30 03/24/25 07:35 DC 03/22/25 17:01 3,000 UNIT Heparin Sodium/ Dextrose 250 ml @ 0 mls/hr Q6H IV 03/22/25 17:30 03/24/25 07:13 DC 03/23/25 22:16 10.17 MLS/HR Insulin Human Regular (humuLIN R 100 UNIT/ML 3ML) INSULIN SLIDING SCAL... ACHS SQ 03/22/25 16:30 04/21/25 16:29 03/25/25 12:33 3 UNIT Lactulose (Constulose 20gm/ 30ml Udcup) 20 gm ONCE PO 03/24/25 18:43 03/24/25 22:45 DC 03/24/25 20:00 20 GM Losartan Potassium (CozAAR 50 mg TAB) 50 mg DAILY PO 03/23/25 09:00 04/22/25 08:59 03/26/25 08:19 50 MG Magnesium Sulfate 50 ml @ 0 mls/hr PROTOCOL IV 03/22/25 15:30 04/21/25 15:29 03/24/25 05:50 25 MLS/HR Metoprolol Succinate (TopROL XL) 25 mg DAILY PO 03/24/25 09:00 04/23/25 08:59 03/26/25 08:19 25 MG Nitroglycerin (Nitrostat) 0.4 mg AD SL 03/22/25 16:30 04/21/25 16:29 Ondansetron HCl (zoFRAN 4MG INJ) 4 mg Q6H PRN IVP NAUSEA/VOMITING 03/22/25 15:30 04/21/25 15:29 Potassium Chloride 100 ml @ 100 mls/hr AD PRN IV POTASSIUM PROTOCOL 03/22/25 15:30 04/21/25 15:29 Potassium Chloride (K-Dur/Klor-Con 20meq) 20 meq AD PRN PO POTASSIUM PROTOCOL 03/22/25 15:30 04/21/25 15:29 Potassium Chloride (KCl 10% Elixir 20meq/15ml) 20 meq AD PRN PO POTASSIUM PROTOCOL 03/22/25 15:30 04/21/25 15:29 Tamsulosin HCl (FloMAX) 0.4 mg DAILY PO 03/23/25 09:00 04/22/25 08:59 03/26/25 08:19 0.4 MG Trazodone HCl (DesyREL/OlepTRO) 50 mg HS PO 03/22/25 21:00 04/21/25 20:59 03/25/25 19:59 50 MG DIAGNOSTICS / RADIOLOGY: [ ] ASSESSMENT: Status post fall, POA History of severe/critical aortic stenosis, POA History of nonobstructive coronary artery disease, POA NSTEMI, likely type II, POA History of [id number] mitral regurgitation, POA History of moderate aortic regurgitation, POA History of subdural hematoma in 02/2024, POA History of nonischemic cardiomyopathy with LVEF of 30-35%, POA Hypertension, POA Hyperlipidemia, POA Type 2 diabetes mellitus, POA PLAN: Cardiothoracic surgery consultation requested, CT angio TAVR protocol requested, official reading pending. TAVR to be done at another facility in upcoming days. NEURO: Minimize central acting medications as possible. Fall Precautions. Well lighted room through the day and minimize interruptions through the night to prevent acute delirium. PULMONARY: Supplemental 02 as needed BiPAP as necessary, for respiratory distress Titrate Fio2 to keep Spo2 > or = 90% DuoNebs and CPT as needed IS hourly while awake for pulmonary hygiene prn Out of bed to chair as tolerated Maintain aspiration precautions at all times CARDIOVASCULAR: Follow hemodynamics. Vital signs per facility protocol GI & NUTRITION: Continue nutritional support Aspirations precautions Prokinetic agents and laxatives as needed KIDNEYS & ELECTROLYTES: Strict monitoring of intake and output Daily weights Avoid nephrotoxic agents Monitor electrolytes and replace as needed Goal urine output of 30mL/hr or 0.5mL/kg/hr Medications to be dosed according to renal function. Avoid contrast if possible ENDOCRINE: Maintain blood glucose between 100-180 at all times. Insulin sliding scale for blood glucose management Hypoglycemia and hyperglycemia protocol in place INFECTIOUS DISEASE: Trend temperature, WBC and procalcitonin level Follow cultures, deescalate antibiotics as soon as possible. Panculture if new onset fever HEMATOLOGY & COAGULATION: Monitor H&H. Keep Hgb > 7 Transfuse 1 unit of PRBC for Hgb < 7 Transfuse 1 pack of platelets of platelets < 20, 000 Watch for any signs and symptoms of bleeding SKIN: Pressure ulcer prevention per facility protocol Specialty mattress as needed ORTHO/REHAB Continue PT/OT PRN: MEDICATIONS Tylenol 650 mg po every 4 hrs for fever zofran 4 mg IV every 6 hrs for n/v Hydralazine 5 mg IV every 4 hrs systolic pressure > 160 bowel regiment: lactulose 20 gm PO BID PRN constipation Supportive measures: Continue GI and DVT prophylaxis Disposition: Pending improvement in clinical condition and echocardiogram report All questions answered JENNIFER RIVERA MD Mar 26, 2025 08:49
--- NOTE | 2025-03-26 10:02 | PN ---
[facility] Cardiology Progress Note Cardiology progress note dictated for Komal Myers MD Date of service 03/26/2025 Problems: 1. Syncope 2. Symptomatic severe aortic stenosis peak gradient 155, mean gradient 101 mmHg with an aortic valve area of 0.6 cm2 on echocardiogram current admission. 3. Non ST-elevation [place] 4. Nonobstructive coronary artery disease had recent cardiac catheterization 5. Hypertension 6. 2D echocardiogram current admission left ventricular ejection fraction 50- 55%, grade 1 diastolic dysfunction Review of blood work: No blood work available this a.m. Current medications: Metoprolol succinate 25 mg daily, tamsulosin daily, aspirin 81 mg daily, losartan 50 mg daily and atorvastatin 40 mg at HS. Assessment/plan: 74-year-old male with history of symptomatic severe aortic stenosis and non ST-elevation [place] presented to [facility] was transferred to [facility] for surgery. He was deemed high surgical risk patient and was advised to have a TAVR. This morning he has a blood pressure of 137/61 and a heart rate of 70 beats per minute and regular lungs-clear to auscultation no pedal edema noted he is afebrile. He had a CT aortogram with TAVR protocol performed with reports still pending. This patient has been here in November and at that time ejection fraction was 30- 35%. He was seen by CT surgery and was advised to have a TAVR valve. He was discharged at that time but did not follow up. He then presented to [facility] with syncope and an abrasion to his forehead. CT scan showed no evidence of bleed. He was evaluated at that time by Dr. Meehan who was unaware that CT surgery had already recommended a TAVR valve. He transferred the patient to [facility] for surgical valve replacement. Ejection fraction has now improved 55%. CT surgery was reconsulted and again advised a TAVR valve. We had considered transfer in the patient to [facility] for a TAVR valve however one of the family members stated that they would prefer to go to [place]. In discussion with the patient himself he is happy with either city. Of concern is that the insurance company may not pay for the procedure if he has been transferred to to hospitals. On the other hand discharge and the patient is not without some risk given his significant syncopal spell and elevated troponins. We have ordered a CT scan with TAVR protocol to see if the patient is even a candidate for a TAVR valve. Reported this is pending. Dr. Jackson we will review this tomorrow and make further recommendations. ATTESTATION BY PHYSICIAN I have seen and examined the patient. I reviewed the documentation, medical decision making, and treatment plan as noted by the mid-level provider above. I agree with the findings and plan of care. KOMAL MYERS MD, [facility] Mar 26, 2025 10:02 KOMAL MYERS MD Mar 26, 2025 10:39
[2025-03-27] VITALS (9 sets, daily range): BP systolic 102–145; BP diastolic 56–73; PULSE 60–77; RESP 18–20; TEMP 97.6–98.5; O2SAT 95–98
[2025-03-27 04:20] LABS: IMMATURE GRANULOCYTE ABSOLUTE 0.04 K/uL (0-1); NUCLEATED RED BLOOD CELLS 0.0 % (0.0-0.19); PLATELET COUNT (AUTO) 232 K/uL (130-400); RED BLOOD CELL COUNT(AUTO) 4.53 MIL/uL (4.50-6.20); RED CELL DISTRIBUTION WIDTH 13.6 % (11.0-15.5); WHITE BLOOD COUNT (AUTO) 7.1 K/uL (4.8-10.8)
[2025-03-27 04:35] LABS: CREATININE 1.0 mg/dL (0.5-1.3); GLOMERULAR FILTR. RATE CALC 79.0 mL/min (>90); GLUCOSE,RANDOM 108.0 mg/dL (70-105); SODIUM SERUM 137.0 mmol/L (136-145); UREA NITROGEN, BLOOD 20.0 mg/dL (7-18)
--- NOTE | 2025-03-27 09:23 | PN ---
[facility] PROGRESS NOTE Date of Service: Mar 27, 2025 Time of Service: 09:20 SUBJECTIVE: 03/23 patient remains admitted to the PCU, hemodynamically stable, afebrile, saturating normal on room air. Hemoglobin and hematocrit stable, CMP remarkable, latest troponin 1799. Echocardiogram pending At the time of my visit patient comfortably in bed, alert oriented x3, denies dizziness, no headache, no chest pain, no shortness a breath, no nausea, no vomiting, no abdominal pain, no diarrhea, no constipation, and daughter at bedside. Patient with small laceration to the right frontal area, wound care consultation requested. Continue to follow Cardiology input and recommendation, echocardiogram done, pending report, continue aspirin 81 mg p.o. daily, losartan 50 mg p.o. daily, atorvastatin 40 mg p.o. at bedtime. Cardiology input noted and appreciated, patient had left heart catheterization in November, demonstrating nonobstructive CAD. Echocardiogram in October demonstrated severe aortic stenosis with an estimated RITA of 0.2-0.4 cm. He was evaluated by Cardiothoracic surgeon and was believed to be a good candidate for TAVR. Patient now presented after a fall, diagnosed with non-STEMI, on heparin drip. From cardiology standpoint, further recommendations will depend on ejection fraction on repeat echocardiogram, if it shows improvement, then he will be considered for surgical AVR, if on the other hand remains low, patient can be discharged home and follow up as an outpatient for TAVR with a Dr. Luke and Dr. Rivers in [place]. 03/24 patient with a history of severe aortic stenosis, transferred from [facility] after sustaining a fall where he hit the front of the head. Cardiothoracic surgery consultation requested, CT angio TAVR protocol requested, we will follow up. patient remains admitted to the PCU, hemodynamically stable, afebrile, saturating normal on room air. Hemoglobin stable 12.5, hematocrit 37.6. CMP is unremarkable. Echocardiogram reported as follows: LVEF is 50-55%. Stage I diastolic dysfunction. There is normal LV segmental wall motion. The left atrium is severely dilated. LASVI 50mL/m The right atrium is moderately dilated. The aortic valve is calcified with restricted opening. Moderate aortic regurgitation is present. There is severe aortic valvular stenosis. Pk gradient 155.0mmHg, mean gradient 101mmHg. AoV 0.6cm The aortic root is normal in size. At the time of my visit, patient comfortably in bed, alert oriented x3, case discussed with the RN, no acute events overnight, no chest pain, shortness shortness for breath, no nausea, no vomiting. 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 He denies chest pain or shortness for breath no nausea vomiting or diarrhea. He spoke with the CT surgeon this morning and there was a discussion about possibly having his TAVR done in [place]. 03/26 patient seen and evaluated this morning. He still has some residual chest wall pain from the fall. His raccoon eyes are unchanged. He had a bowel movement yesterday and urinating without a problem today. Appetite is intact. 03/27 patient remains admitted to the PCU, blood pressure 145/58, afebrile, s aturating normal on room air, hemoglobin 12.9, hematocrit 38.1. Cardiology input noted and appreciated,CT angiography of the coronaries to assess his appropriateness for TAVR. . Continue to follow Cardiology input and recommendation. At the time of my visit the patient is comfortably in bed, alert oriented x3, no acute events overnight per discussion with the RN, still feels mildly dizzy when he gets up of the bed and walk around but denied chest pain, shortness shortness for breath, no nausea, no vomiting, no family members at bedside during my visit. REVIEW OF SYSTEMS CONSTITUTIONAL: Denies fevers, chills, or night sweats. No unintentional weight loss reported. NEUROLOGICAL: Fall yesterday ENT: No hearing loss, otalgia, otorrhea, rhinitis, rhinorrhea, hoarseness, or sore throat. CARDIOVASCULAR: Chest pain PULMONARY: Denies any shortness of breath, cough, phlegm/sputum, hemoptysis, pleuritic chest pain. SLEEP: Denies morning headaches, daytime somnolence or napping. Denies difficulty falling asleep, staying asleep, waking from sleep. Denies knowledge of snoring. GASTROINTESTINAL: Denies any type of dysphagia to either liquids or solids. Denies nausea, vomiting, pyrosis, early satiety, abdominal pain, diarrhea, constipation, or changes in stool consistency or caliber. Denies coffee-ground emesis, hematemesis, hematochezia, or melanotic stools. GENITOURINARY: Denies frequency, urgency, nocturia, hematuria or incontinence (Storage/Irritative symptoms.) Low urinary stream, straining to void, urinary intermittency or hesitancy, splitting of the voiding stream, terminal dribbling. ENDOCRINOLOGIC: Denies polyuria, polydipsia, polyphagia or heat/cold intolerances. HEMATOLOGIC: Denies thrombophilia/previous clots, or coagulopathy/bleeding disorders. ONCOLOGIC: Denies personal history of malignancy. DERMATOLOGIC: Denies rashes or pruritus. PSYCHIATRIC: Denies any suicidal or homicidal ideation. Denies hallucinations. PHYSICAL EXAM: GENERAL APPEARANCE: The patient is awake, alert, and oriented, in no acute cardiopulmonary distress. NEUROLOGICAL: Cranial nerves II-XII grossly intact. Motor is 5/5 in bilateral upper and lower extremities proximal to distal. No sensory deficits. HEENT: Face is symmetric. Pupils are equal and reactive. Extraocular movements are intact. NECK: Supple. No JVD. No thyromegaly. No submental, submandibular, pre- /postauricular, occipital or supraclavicular lymphadenopathy. CHEST: Normal chest expansion. No Telemetry. LUNGS: Absence of any rales, rhonchi or any wheezing. CARDIOVASCULAR: Regular. 3/6 systolic murmur noted in the 2nd right intercostal space ABDOMEN: Soft, nontender, and nondistended. There is no rebound, voluntary guarding, or rigidity. : Deferred. No [place]. EXTREMITIES: Non-edematous and not cyanotic. No clubbing. Good capillary refill. SKIN: Multiple abrasions noted to forehead chin as well as bilateral knees no evidence of inflammation associated with these abrasions. Vital Signs (last 8hr) Date Time Temp Pulse Resp B/P (MAP) Pulse Ox O2 Delivery O2 Flow Rate FiO2 03/27/25 08:00 98 Room Air* 0 21 03/27/25 07:00 98.4 74 19 145/58 95 Room Air 03/27/25 04:00 98.2 77 18 128/70 98 Room Air LABS: Laboratory: Test 03/27/25 05:34 03/27/25 03:55 03/26/25 16:18 Range/Units Whole Blood Glucose 115 H 70-110 MG/DL White Blood Count 7.1 4.8-10.8 K/uL Red Blood Count 4.53 4.50-6.20 MIL/uL Hemoglobin 12.9 L 14.0-18.0 g/dL Hematocrit 38.1 L 42-54 % Mean Corpuscular Volume 84.1 79-99 fL Mean Corpuscular Hemoglobin 28.5 27.0-33.0 pg Mean Corpuscular Hemoglobin Concent 33.9 32.0-36.0 g/dL Red Cell Distribution Width 13.6 11.0-15.5 % Platelet Count 232 130-400 K/uL Mean Platelet Volume 10.6 H 7.5-10.5 fL Immature Granulocyte % (Auto) 0.6 0-1 % Neutrophils (%) (Auto) 65.3 40.0-77.0 % Lymphocytes (%) (Auto) 23.5 21.0-51.0 % Monocytes (%) (Auto) 8.2 3.0-13.0 % Eosinophils (%) (Auto) 2.1 0.0-8.0 % Basophils (%) (Auto) 0.3 0.0-5.0 % Neutrophils # (Auto) 4.6 1.8-7.7 K/uL Lymphocytes # (Auto) 1.7 1.0-4.8 K/uL Monocytes # (Auto) 0.6 0.1-1.0 K/uL Eosinophils # (Auto) 0.15 0.00-0.70 K/uL Basophils # (Auto) 0.02 0.00-0.20 K/uL Absolute Immature Granulocyte (auto 0.04 0-1 K/uL Nucleated Red Blood Cells 0.0 0.0-0.19 % Sodium Level 137 136-145 mmol/L Potassium Level 4.1 3.5-5.1 mmol/L Chloride Level 102 101-111 mmol/L Carbon Dioxide Level 27 21-32 mmol/L Blood Urea Nitrogen 20 H 7-18 mg/dL Creatinine 1.0 0.5-1.3 mg/dL Glomerular Filtration Rate Calc 79 >90 mL/min Random Glucose 108 H 70-105 mg/dL Total Calcium 8.8 8.5-10.1 mg/dL Bedside Glucose Comment Notified Nurse Current Medications Medications (Trade) Dose Ordered Sig/Dotty Route PRN Reason Start Time Stop Time Status Last Admin Dose Admin Acetaminophen (TYLenol 325MG TAB) 650 mg Q6H PRN PO MILD PAIN (1-3) 03/22/25 15:30 04/21/25 15:29 03/25/25 20:16 650 MG Aspirin (Aspirin 81mg Chew Tab) 81 mg DAILY PO 03/23/25 09:00 04/22/25 08:59 03/27/25 08:08 81 MG Atorvastatin Calcium (LIPItor 40MG) 40 mg HS PO 03/22/25 21:00 04/21/25 20:59 03/26/25 20:11 40 MG Bacitracin (Bacitracin 28.4gm) apply to forehead DAILY TP 03/24/25 09:00 04/23/25 08:59 03/27/25 08:11 1 GM Famotidine (Pepcid 20mg Tab) 20 mg Q48H PO 03/22/25 21:00 04/21/25 20:59 03/26/25 20:11 20 MG Heparin Sodium (Porcine) (HEParin 5,000 UNIT VIAL) *calculation based on ACTUAL B... AD PRN IV HEPARIN PROTOCOL 03/22/25 17:30 03/24/25 07:35 DC 03/22/25 17:01 3,000 UNIT Heparin Sodium/ Dextrose 250 ml @ 0 mls/hr Q6H IV 03/22/25 17:30 03/24/25 07:13 DC 03/23/25 22:16 10.17 MLS/HR Insulin Human Regular (humuLIN R 100 UNIT/ML 3ML) INSULIN SLIDING SCAL... ACHS SQ 03/22/25 16:30 04/21/25 16:29 03/26/25 20:12 2 UNIT Lactulose (Constulose 20gm/ 30ml Udcup) 20 gm ONCE PO 03/24/25 18:43 03/24/25 22:45 DC 03/24/25 20:00 20 GM Losartan Potassium (CozAAR 50 mg TAB) 50 mg DAILY PO 03/23/25 09:00 04/22/25 08:59 03/27/25 08:08 50 MG Magnesium Sulfate 50 ml @ 0 mls/hr PROTOCOL IV 03/22/25 15:30 04/21/25 15:29 03/24/25 05:50 25 MLS/HR Metoprolol Succinate (TopROL XL) 25 mg DAILY PO 03/24/25 09:00 04/23/25 08:59 03/27/25 08:08 25 MG Nitroglycerin (Nitrostat) 0.4 mg AD SL 03/22/25 16:30 04/21/25 16:29 Ondansetron HCl (zoFRAN 4MG INJ) 4 mg Q6H PRN IVP NAUSEA/VOMITING 03/22/25 15:30 04/21/25 15:29 Potassium Chloride 100 ml @ 100 mls/hr AD PRN IV POTASSIUM PROTOCOL 03/22/25 15:30 04/21/25 15:29 Potassium Chloride (K-Dur/Klor-Con 20meq) 20 meq AD PRN PO POTASSIUM PROTOCOL 03/22/25 15:30 04/21/25 15:29 Potassium Chloride (KCl 10% Elixir 20meq/15ml) 20 meq AD PRN PO POTASSIUM PROTOCOL 03/22/25 15:30 04/21/25 15:29 Tamsulosin HCl (FloMAX) 0.4 mg DAILY PO 03/23/25 09:00 04/22/25 08:59 03/27/25 08:08 0.4 MG Trazodone HCl (DesyREL/OlepTRO) 50 mg HS PO 03/22/25 21:00 04/21/25 20:59 03/26/25 20:11 50 MG DIAGNOSTICS / RADIOLOGY: [ ] ASSESSMENT: Status post fall, POA History of severe/critical aortic stenosis, POA History of nonobstructive coronary artery disease, POA NSTEMI, likely type II, POA History of wyzs-[id number]-exdlurny mitral regurgitation, POA History of moderate aortic regurgitation, POA History of subdural hematoma in 02/2024, POA History of nonischemic cardiomyopathy with LVEF of 30-35%, POA Hypertension, POA Hyperlipidemia, POA Type 2 diabetes mellitus, POA PLAN: Cardiothoracic surgery consultation requested, CT angio TAVR protocol requested, official reading pending. TAVR to be done at another facility in upcoming days. NEURO: Minimize central acting medications as possible. Fall Precautions. Well lighted room through the day and minimize interruptions through the night to prevent acute delirium. PULMONARY: Supplemental 02 as needed BiPAP as necessary, for respiratory distress Titrate Fio2 to keep Spo2 > or = 90% DuoNebs and CPT as needed IS hourly while awake for pulmonary hygiene prn Out of bed to chair as tolerated Maintain aspiration precautions at all times CARDIOVASCULAR: Follow hemodynamics. Vital signs per facility protocol GI & NUTRITION: Continue nutritional support Aspirations precautions Prokinetic agents and laxatives as needed KIDNEYS & ELECTROLYTES: Strict monitoring of intake and output Daily weights Avoid nephrotoxic agents Monitor electrolytes and replace as needed Goal urine output of 30mL/hr or 0.5mL/kg/hr Medications to be dosed according to renal function. Avoid contrast if possible ENDOCRINE: Maintain blood glucose between 100-180 at all times. Insulin sliding scale for blood glucose management Hypoglycemia and hyperglycemia protocol in place INFECTIOUS DISEASE: Trend temperature, WBC and procalcitonin level Follow cultures, deescalate antibiotics as soon as possible. Panculture if new onset fever HEMATOLOGY & COAGULATION: Monitor H&H. Keep Hgb > 7 Transfuse 1 unit of PRBC for Hgb < 7 Transfuse 1 pack of platelets of platelets < 20, 000 Watch for any signs and symptoms of bleeding SKIN: Pressure ulcer prevention per facility protocol Specialty mattress as needed ORTHO/REHAB Continue PT/OT PRN: MEDICATIONS Tylenol 650 mg po every 4 hrs for fever zofran 4 mg IV every 6 hrs for n/v Hydralazine 5 mg IV every 4 hrs systolic pressure > 160 bowel regiment: lactulose 20 gm PO BID PRN constipation Supportive measures: Continue GI and DVT prophylaxis Disposition: Pending improvement in clinical condition and echocardiogram report All questions answered ULICES DOVER MD Mar 27, 2025 09:23
[2025-03-28 03:15] VITALS: BP 141/60; PULSE 64; RESP 20; TEMP 97.7
[2025-03-28 08:02] VITALS: BP 143/62; PULSE 70; RESP 16; TEMP 98.1
--- NOTE | 2025-03-28 09:22 | PN ---
PROGRESS NOTE PROBLEM LIST: Syncope Critical symptomatic aortic stenosis Non ST segment elevation myocardial infarction Mild coronary atherosclerosis Hypertension INTERIM HISTORY OF PRESENT ILLNESS: Overall patient feels much improved and denies any recent chest pain pressure tightness. Patient did have CT angio TAVR protocol performed yesterday and is indeed felt to be a candidate for TAVR if necessary. I have had a long discussion with the patient regarding options at this time and I have offered him a 2nd surgical opinion regarding aortic valve replacement. This is currently pending. REVIEW OF SYSTEMS: No fever, headache, chest pain, abdominal pain, nausea, vomiting, or diarrhea. VITAL SIGNS Vital Signs Date Time Temp Pulse Resp B/P (MAP) Pulse Ox O2 Delivery O2 Flow Rate FiO2 03/28/25 08:02 98.1 70 16 143/62 97 Room Air 03/27/25 20:00 0 21 LABS/MEDS Laboratory Tests Test 03/27/25 11:28 03/27/25 15:49 03/27/25 19:58 03/28/25 05:40 Whole Blood Glucose 128 MG/DL (70-110) H 124 MG/DL (70-110) H 172 MG/DL (70-110) H 103 MG/DL (70-110) Current Medications Insulin Human Regular INSULIN SLIDING SCAL... ACHS SQ Last administered on 03/26/25at 20:12; Start 03/22/25 at 16:30; Stop 04/21/25 at 16:29 Losartan Potassium 50 mg DAILY PO Last administered on 03/27/25at 08:08; Start 03/23/25 at 09:00; Stop 04/22/25 at 08:59 Acetaminophen 650 mg Q6H PRN PO Last administered on 03/25/25at 20:16; Start 03/22/25 at 15:30; Stop 04/21/25 at 15:29 Ondansetron HCl 4 mg Q6H PRN IVP; Start 03/22/25 at 15:30; Stop 04/21/25 at 15:29 Potassium Chloride 100 ml @ 100 mls/hr AD PRN IV; Start 03/22/25 at 15:30; Stop 04/21/25 at 15:29 Potassium Chloride 20 meq AD PRN PO; Start 03/22/25 at 15:30; Stop 04/21/25 at 15:29 Potassium Chloride 20 meq AD PRN PO; Start 03/22/25 at 15:30; Stop 04/21/25 at 15:29 Magnesium Sulfate 50 ml @ 0 mls/hr PROTOCOL IV Last administered on 03/24/25at 05:50; Start 03/22/25 at 15:30; Stop 04/21/25 at 15:29 Aspirin 81 mg DAILY PO Last administered on 03/27/25at 08:08; Start 03/23/25 at 09:00; Stop 04/22/25 at 08:59 Famotidine 20 mg Q48H PO Last administered on 03/26/25at 20:11; Start 03/22/25 at 21:00; Stop 04/21/25 at 20:59 Heparin Sodium/ Dextrose 250 ml @ 0 mls/hr Q6H IV Last administered on 03/23/25at 22:16; Start 03/22/25 at 17:30; Stop 03/24/25 at 07:13; Status DC Atorvastatin Calcium 40 mg HS PO Last administered on 03/27/25at 20:20; Start 03/22/25 at 21:00; Stop 04/21/25 at 20:59 Nitroglycerin 0.4 mg AD SL; Start 03/22/25 at 16:30; Stop 04/21/25 at 16:29 Tamsulosin HCl 0.4 mg DAILY PO Last administered on 03/27/25at 08:08; Start 03/23/25 at 09:00; Stop 04/22/25 at 08:59 Trazodone HCl 50 mg HS PO Last administered on 03/28/25at 00:15; Start 03/22/25 at 21:00; Stop 04/21/25 at 20:59 Heparin Sodium (Porcine) *calculation based on ACTUAL B... AD PRN IV Last administered on 03/22/25at 17:01; Start 03/22/25 at 17:30; Stop 03/24/25 at 07:35; Status DC Bacitracin apply to forehead DAILY TP Last administered on 03/27/25at 08:11; Start 03/24/25 at 09:00; Stop 04/23/25 at 08:59 Metoprolol Succinate 25 mg DAILY PO Last administered on 03/27/25at 08:08; Start 03/24/25 at 09:00; Stop 04/23/25 at 08:59 Iohexol 35,000 mg STK-MED ONCE IV; Start 03/24/25 at 12:30; Stop 03/24/25 at 12:30; Status DC Lactulose 20 gm ONCE PO Last administered on 03/24/25at 20:00; Start 03/24/25 at 18:43; Stop 03/24/25 at 22:45; Status DC PHYSICAL EXAMINATION: GENERAL: No acute distress. HEENT: Normocephalic, atraumatic. EXTREMITIES: No edema bilaterally. NEUROLOGIC: Cranial nerves 2-12 grossly intact. PSYCHIATRIC: Calm. TELEMETRY: Sinus rhythm ASSESSMENT: Syncope Critical symptomatic aortic stenosis Non ST segment elevation myocardial infarction Mild coronary atherosclerosis Hypertension PLAN: At this time we are preparing patient for possible discharge with the quick follow up with CT surgery in [place] to get a 2nd opinion regarding possible AVR only. If patient is not felt to be deemed a surgical candidate then will refer to Cardiology in [place] for possible TAVR as patient does not want to go to [place] for TAVR procedure. Patient's medications have been reviewed and will be continued. Possible discharge home later this afternoon ANDREY BURNS MD Mar 28, 2025 09:22
--- NOTE | 2025-03-28 10:17 | PN ---
[facility] PROGRESS NOTE Date of Service: Mar 28, 2025 Time of Service: 10:14 SUBJECTIVE: 03/23 patient remains admitted to the PCU, hemodynamically stable, afebrile, saturating normal on room air. Hemoglobin and hematocrit stable, CMP remarkable, latest troponin 1799. Echocardiogram pending At the time of my visit patient comfortably in bed, alert oriented x3, denies dizziness, no headache, no chest pain, no shortness a breath, no nausea, no vomiting, no abdominal pain, no diarrhea, no constipation, and daughter at bedside. Patient with small laceration to the right frontal area, wound care consultation requested. Continue to follow Cardiology input and recommendation, echocardiogram done, pending report, continue aspirin 81 mg p.o. daily, losartan 50 mg p.o. daily, atorvastatin 40 mg p.o. at bedtime. Cardiology input noted and appreciated, patient had left heart catheterization in November, demonstrating nonobstructive CAD. Echocardiogram in October demonstrated severe aortic stenosis with an estimated RITA of 0.2-0.4 cm. He was evaluated by Cardiothoracic surgeon and was believed to be a good candidate for TAVR. Patient now presented after a fall, diagnosed with non-STEMI, on heparin drip. From cardiology standpoint, further recommendations will depend on ejection fraction on repeat echocardiogram, if it shows improvement, then he will be considered for surgical AVR, if on the other hand remains low, patient can be discharged home and follow up as an outpatient for TAVR with a Dr. Luke and Dr. Rivers in [place]. 03/24 patient with a history of severe aortic stenosis, transferred from [facility] after sustaining a fall where he hit the front of the head. Cardiothoracic surgery consultation requested, CT angio TAVR protocol requested, we will follow up. patient remains admitted to the PCU, hemodynamically stable, afebrile, saturating normal on room air. Hemoglobin stable 12.5, hematocrit 37.6. CMP is unremarkable. Echocardiogram reported as follows: LVEF is 50-55%. Stage I diastolic dysfunction. There is normal LV segmental wall motion. The left atrium is severely dilated. LASVI 50mL/m The right atrium is moderately dilated. The aortic valve is calcified with restricted opening. Moderate aortic regurgitation is present. There is severe aortic valvular stenosis. Pk gradient 155.0mmHg, mean gradient 101mmHg. AoV 0.6cm The aortic root is normal in size. At the time of my visit, patient comfortably in bed, alert oriented x3, case discussed with the RN, no acute events overnight, no chest pain, shortness shortness for breath, no nausea, no vomiting. 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 He denies chest pain or shortness for breath no nausea vomiting or diarrhea. He spoke with the CT surgeon this morning and there was a discussion about possibly having his TAVR done in [place]. 03/26 patient seen and evaluated this morning. He still has some residual chest wall pain from the fall. His raccoon eyes are unchanged. He had a bowel movement yesterday and urinating without a problem today. Appetite is intact. 03/27 patient remains admitted to the PCU, blood pressure 145/58, afebrile, s aturating normal on room air, hemoglobin 12.9, hematocrit 38.1. Cardiology input noted and appreciated,CT angiography of the coronaries to assess his appropriateness for TAVR. . Continue to follow Cardiology input and recommendation. At the time of my visit the patient is comfortably in bed, alert oriented x3, no acute events overnight per discussion with the RN, still feels mildly dizzy when he gets up of the bed and walk around but denied chest pain, shortness shortness for breath, no nausea, no vomiting, no family members at bedside during my visit. 03/28 patient remains admitted to the PCU, hemodynamically stable, BP 143/62, afebrile, he is saturating normal on room air. Cardiology input noted and appreciated, CT angio TAVR protocol performed, patient felt to be a candidate for TAVR if needed. Per Cardiology possible discharge with quick follow up with CT surgery in at input to get a 2nd opinion regarding possible aortic valve replacement. Possible discharge home later today. REVIEW OF SYSTEMS CONSTITUTIONAL: Denies fevers, chills, or night sweats. No unintentional weight loss reported. NEUROLOGICAL: Fall yesterday ENT: No hearing loss, otalgia, otorrhea, rhinitis, rhinorrhea, hoarseness, or sore throat. CARDIOVASCULAR: Chest pain PULMONARY: Denies any shortness of breath, cough, phlegm/sputum, hemoptysis, pleuritic chest pain. SLEEP: Denies morning headaches, daytime somnolence or napping. Denies difficulty falling asleep, staying asleep, waking from sleep. Denies knowledge of snoring. GASTROINTESTINAL: Denies any type of dysphagia to either liquids or solids. Denies nausea, vomiting, pyrosis, early satiety, abdominal pain, diarrhea, constipation, or changes in stool consistency or caliber. Denies coffee-ground emesis, hematemesis, hematochezia, or melanotic stools. GENITOURINARY: Denies frequency, urgency, nocturia, hematuria or incontinence (Storage/Irritative symptoms.) Low urinary stream, straining to void, urinary intermittency or hesitancy, splitting of the voiding stream, terminal dribbling. ENDOCRINOLOGIC: Denies polyuria, polydipsia, polyphagia or heat/cold intolerances. HEMATOLOGIC: Denies thrombophilia/previous clots, or coagulopathy/bleeding disorders. ONCOLOGIC: Denies personal history of malignancy. DERMATOLOGIC: Denies rashes or pruritus. PSYCHIATRIC: Denies any suicidal or homicidal ideation. Denies hallucinations. PHYSICAL EXAM: GENERAL APPEARANCE: The patient is awake, alert, and oriented, in no acute cardiopulmonary distress. NEUROLOGICAL: Cranial nerves II-XII grossly intact. Motor is 5/5 in bilateral upper and lower extremities proximal to distal. No sensory deficits. HEENT: Face is symmetric. Pupils are equal and reactive. Extraocular movements are intact. NECK: Supple. No JVD. No thyromegaly. No submental, submandibular, pre- /postauricular, occipital or supraclavicular lymphadenopathy. CHEST: Normal chest expansion. No Telemetry. LUNGS: Absence of any rales, rhonchi or any wheezing. CARDIOVASCULAR: Regular. 3/6 systolic murmur noted in the 2nd right intercostal space ABDOMEN: Soft, nontender, and nondistended. There is no rebound, voluntary guarding, or rigidity. : Deferred. No [place]. EXTREMITIES: Non-edematous and not cyanotic. No clubbing. Good capillary refill. SKIN: Multiple abrasions noted to forehead chin as well as bilateral knees no evidence of inflammation associated with these abrasions. Vital Signs (last 8hr) Date Time Temp Pulse Resp B/P (MAP) Pulse Ox O2 Delivery O2 Flow Rate FiO2 03/28/25 08:02 98.1 70 16 143/62 97 Room Air 03/28/25 03:15 97.7 64 20 141/60 93 Room Air LABS: Laboratory: Test 03/28/25 05:40 03/27/25 03:55 03/26/25 16:18 Range/Units Whole Blood Glucose 103 70-110 MG/DL White Blood Count 7.1 4.8-10.8 K/uL Red Blood Count 4.53 4.50-6.20 MIL/uL Hemoglobin 12.9 L 14.0-18.0 g/dL Hematocrit 38.1 L 42-54 % Mean Corpuscular Volume 84.1 79-99 fL Mean Corpuscular Hemoglobin 28.5 27.0-33.0 pg Mean Corpuscular Hemoglobin Concent 33.9 32.0-36.0 g/dL Red Cell Distribution Width 13.6 11.0-15.5 % Platelet Count 232 130-400 K/uL Mean Platelet Volume 10.6 H 7.5-10.5 fL Immature Granulocyte % (Auto) 0.6 0-1 % Neutrophils (%) (Auto) 65.3 40.0-77.0 % Lymphocytes (%) (Auto) 23.5 21.0-51.0 % Monocytes (%) (Auto) 8.2 3.0-13.0 % Eosinophils (%) (Auto) 2.1 0.0-8.0 % Basophils (%) (Auto) 0.3 0.0-5.0 % Neutrophils # (Auto) 4.6 1.8-7.7 K/uL Lymphocytes # (Auto) 1.7 1.0-4.8 K/uL Monocytes # (Auto) 0.6 0.1-1.0 K/uL Eosinophils # (Auto) 0.15 0.00-0.70 K/uL Basophils # (Auto) 0.02 0.00-0.20 K/uL Absolute Immature Granulocyte (auto 0.04 0-1 K/uL Nucleated Red Blood Cells 0.0 0.0-0.19 % Sodium Level 137 136-145 mmol/L Potassium Level 4.1 3.5-5.1 mmol/L Chloride Level 102 101-111 mmol/L Carbon Dioxide Level 27 21-32 mmol/L Blood Urea Nitrogen 20 H 7-18 mg/dL Creatinine 1.0 0.5-1.3 mg/dL Glomerular Filtration Rate Calc 79 >90 mL/min Random Glucose 108 H 70-105 mg/dL Total Calcium 8.8 8.5-10.1 mg/dL Bedside Glucose Comment Notified Nurse Current Medications Medications (Trade) Dose Ordered Sig/Dotty Route PRN Reason Start Time Stop Time Status Last Admin Dose Admin Acetaminophen (TYLenol 325MG TAB) 650 mg Q6H PRN PO MILD PAIN (1-3) 03/22/25 15:30 04/21/25 15:29 03/25/25 20:16 650 MG Aspirin (Aspirin 81mg Chew Tab) 81 mg DAILY PO 03/23/25 09:00 04/22/25 08:59 03/28/25 09:49 81 MG Atorvastatin Calcium (LIPItor 40MG) 40 mg HS PO 03/22/25 21:00 04/21/25 20:59 03/27/25 20:20 40 MG Bacitracin (Bacitracin 28.4gm) apply to forehead DAILY TP 03/24/25 09:00 04/23/25 08:59 03/28/25 09:49 1 GM Famotidine (Pepcid 20mg Tab) 20 mg Q48H PO 03/22/25 21:00 04/21/25 20:59 03/26/25 20:11 20 MG Heparin Sodium (Porcine) (HEParin 5,000 UNIT VIAL) *calculation based on ACTUAL B... AD PRN IV HEPARIN PROTOCOL 03/22/25 17:30 03/24/25 07:35 DC 03/22/25 17:01 3,000 UNIT Heparin Sodium/ Dextrose 250 ml @ 0 mls/hr Q6H IV 03/22/25 17:30 03/24/25 07:13 DC 03/23/25 22:16 10.17 MLS/HR Insulin Human Regular (humuLIN R 100 UNIT/ML 3ML) INSULIN SLIDING SCAL... ACHS SQ 03/22/25 16:30 04/21/25 16:29 03/26/25 20:12 2 UNIT Lactulose (Constulose 20gm/ 30ml Udcup) 20 gm ONCE PO 03/24/25 18:43 03/24/25 22:45 DC 03/24/25 20:00 20 GM Losartan Potassium (CozAAR 50 mg TAB) 50 mg DAILY PO 03/23/25 09:00 04/22/25 08:59 03/28/25 09:49 50 MG Magnesium Sulfate 50 ml @ 0 mls/hr PROTOCOL IV 03/22/25 15:30 04/21/25 15:29 03/24/25 05:50 25 MLS/HR Metoprolol Succinate (TopROL XL) 25 mg DAILY PO 03/24/25 09:00 04/23/25 08:59 03/28/25 09:49 25 MG Nitroglycerin (Nitrostat) 0.4 mg AD SL 03/22/25 16:30 04/21/25 16:29 Ondansetron HCl (zoFRAN 4MG INJ) 4 mg Q6H PRN IVP NAUSEA/VOMITING 03/22/25 15:30 04/21/25 15:29 Potassium Chloride 100 ml @ 100 mls/hr AD PRN IV POTASSIUM PROTOCOL 03/22/25 15:30 04/21/25 15:29 Potassium Chloride (K-Dur/Klor-Con 20meq) 20 meq AD PRN PO POTASSIUM PROTOCOL 03/22/25 15:30 04/21/25 15:29 Potassium Chloride (KCl 10% Elixir 20meq/15ml) 20 meq AD PRN PO POTASSIUM PROTOCOL 03/22/25 15:30 04/21/25 15:29 Tamsulosin HCl (FloMAX) 0.4 mg DAILY PO 03/23/25 09:00 04/22/25 08:59 03/28/25 09:49 0.4 MG Trazodone HCl (DesyREL/OlepTRO) 50 mg HS PO 03/22/25 21:00 04/21/25 20:59 03/28/25 00:15 50 MG DIAGNOSTICS / RADIOLOGY: [ ] ASSESSMENT: Status post fall, POA History of severe/critical aortic stenosis, POA History of nonobstructive coronary artery disease, POA NSTEMI, likely type II, POA History of [id number] mitral regurgitation, POA History of moderate aortic regurgitation, POA History of subdural hematoma in 02/2024, POA History of nonischemic cardiomyopathy with LVEF of 30-35%, POA Hypertension, POA Hyperlipidemia, POA Type 2 diabetes mellitus, POA PLAN: patient remains admitted to the PCU, hemodynamically stable, BP 143/62, afebrile, he is saturating normal on room air. Cardiology input noted and appreciated, CT angio TAVR protocol performed, patient felt to be a candidate for TAVR if needed. Per Cardiology possible discharge with quick follow up with CT surgery in at input to get a 2nd opinion regarding possible aortic valve replacement. Possible discharge home later today. NEURO: Minimize central acting medications as possible. Fall Precautions. Well lighted room through the day and minimize interruptions through the night to prevent acute delirium. PULMONARY: Supplemental 02 as needed BiPAP as necessary, for respiratory distress Titrate Fio2 to keep Spo2 > or = 90% DuoNebs and CPT as needed IS hourly while awake for pulmonary hygiene prn Out of bed to chair as tolerated Maintain aspiration precautions at all times CARDIOVASCULAR: Follow hemodynamics. Vital signs per facility protocol GI & NUTRITION: Continue nutritional support Aspirations precautions Prokinetic agents and laxatives as needed KIDNEYS & ELECTROLYTES: Strict monitoring of intake and output Daily weights Avoid nephrotoxic agents Monitor electrolytes and replace as needed Goal urine output of 30mL/hr or 0.5mL/kg/hr Medications to be dosed according to renal function. Avoid contrast if possible ENDOCRINE: Maintain blood glucose between 100-180 at all times. Insulin sliding scale for blood glucose management Hypoglycemia and hyperglycemia protocol in place INFECTIOUS DISEASE: Trend temperature, WBC and procalcitonin level Follow cultures, deescalate antibiotics as soon as possible. Panculture if new onset fever HEMATOLOGY & COAGULATION: Monitor H&H. Keep Hgb > 7 Transfuse 1 unit of PRBC for Hgb < 7 Transfuse 1 pack of platelets of platelets < 20, 000 Watch for any signs and symptoms of bleeding SKIN: Pressure ulcer prevention per facility protocol Specialty mattress as needed ORTHO/REHAB Continue PT/OT PRN: MEDICATIONS Tylenol 650 mg po every 4 hrs for fever zofran 4 mg IV every 6 hrs for n/v Hydralazine 5 mg IV every 4 hrs systolic pressure > 160 bowel regiment: lactulose 20 gm PO BID PRN constipation Supportive measures: Continue GI and DVT prophylaxis Disposition: Pending improvement in clinical condition and echocardiogram report All questions answered ULICES DOVER MD Mar 28, 2025 10:17
--- NOTE | 2025-03-28 10:19 | DS ---
Discharge Summary Hospital Course Summary: THE PATIENT ADMITTED TO HOSPITAL MARCH 22, 2025 WITH THE FOLLOWING HISTORY OF THE PRESENT ILLNESS: 74-year-old male with history of type 2 diabetes mellitus, hypertension, hyperlipidemia, history of nonischemic cardiomyopathy with LVEF of 30-35%, history of severe aortic stenosis, nonobstructive coronary artery disease on cardiac catheterization from 11/30/2024, history of subdural hematoma in 02/2024 secondary to fall, who presented from [facility] as a transfer for further management of severe aortic stenosis. Patient presented to the ER in [facility] close to 7:00 p.m. yesterday after he had a fall where he hit the front of the head. Patient states that he was working outside where he experience dizziness and generalized weakness leading to the fall. Denies any syncopal episode. Patient has a previous 2D echocardiogram from 10/2024 which showed LVEF of 30-35% with grade 2 diastolic failure and critical aortic stenosis. Patient was previously hospitalized in [facility] in 11/2024 where he underwent cardiac catheterization where he was found to have severe aortic stenosis with peak to peak gradient of 72 mmHg with mean gradient of 53 mmHg and calculated aortic valve area of 0.66 cm2. Patient was seen by Dr. Schumacher with Cardiovascular surgery who recommended for evaluation for TAVR due to depressed EF of 35%. Patient has not followed up with CV surgery as outpatient. On presentation to [facility], patient underwent CT head without contrast which showed findings of mild cerebral atrophy and minimal small-vessel disease with no intracranial bleed. X-ray of the left knee showed no fractures, CT of the cervical spine without contrast showed no acute fractures or subluxation. Labs in the ER showed WBC count of 12,1600, hemoglobin of 12.9, platelet count of 825121. BMP remarkable for sodium of 137, potassium 4.0, chloride of 100, BUN of 21, creatinine of 1.18, glucose of 196, calcium 9.3. Panel also significant for high sensitivity troponin initially of 903 which up trended to 4514. Patient reported having chest pain in [facility] ER with associated radiation to the neck. Patient will be admitted under hospitalist service and consultation with Cardiology and Cardiovascular surgery will be obtained. HOSPITAL COURSE 03/23 patient remains admitted to the PCU, hemodynamically stable, afebrile, saturating normal on room air. Hemoglobin and hematocrit stable, CMP remarkable, latest troponin 1799. Echocardiogram pending At the time of my visit patient comfortably in bed, alert oriented x3, denies dizziness, no headache, no chest pain, no shortness a breath, no nausea, no vomiting, no abdominal pain, no diarrhea, no constipation, and daughter at bedside. Patient with small laceration to the right frontal area, wound care consultation requested. Continue to follow Cardiology input and recommendation, echocardiogram done, pending report, continue aspirin 81 mg p.o. daily, losartan 50 mg p.o. daily, atorvastatin 40 mg p.o. at bedtime. Cardiology input noted and appreciated, patient had left heart catheterization in November, demonstrating nonobstructive CAD. Echocardiogram in October demonstrated severe aortic stenosis with an estimated RITA of 0.2-0.4 cm. He was evaluated by Cardiothoracic surgeon and was believed to be a good candidate for TAVR. Patient now presented after a fall, diagnosed with non-STEMI, on heparin drip. From cardiology standpoint, further recommendations will depend on ejection fraction on repeat echocardiogram, if it shows improvement, then he will be considered for surgical AVR, if on the other hand remains low, patient can be discharged home and follow up as an outpatient for TAVR with a Dr. Luke and Dr. Rivers in [place]. 03/24 patient with a history of severe aortic stenosis, transferred from [facility] after sustaining a fall where he hit the front of the head. Cardiothoracic surgery consultation requested, CT angio TAVR protocol requested, we will follow up. patient remains admitted to the PCU, hemodynamically stable, afebrile, saturating normal on room air. Hemoglobin stable 12.5, hematocrit 37.6. CMP is unremarkable. Echocardiogram reported as follows: LVEF is 50-55%. Stage I diastolic dysfunction. There is normal LV segmental wall motion. The left atrium is severely dilated. LASVI 50mL/m The right atrium is moderately dilated. The aortic valve is calcified with restricted opening. Moderate aortic regurgitation is present. There is severe aortic valvular stenosis. Pk gradient 155.0mmHg, mean gradient 101mmHg. AoV 0.6cm The aortic root is normal in size. At the time of my visit, patient comfortably in bed, alert oriented x3, case discussed with the RN, no acute events overnight, no chest pain, shortness shortness for breath, no nausea, no vomiting. 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 He denies chest pain or shortness for breath no nausea vomiting or diarrhea. He spoke with the CT surgeon this morning and there was a discussion about possibly having his TAVR done in [facility]. 03/26 patient seen and evaluated this morning. He still has some residual chest wall pain from the fall. His raccoon eyes are unchanged. He had a bowel movement yesterday and urinating without a problem today. Appetite is intact. 03/27 patient remains admitted to the PCU, blood pressure 145/58, afebrile, saturating normal on room air, hemoglobin 12.9, hematocrit 38.1. Cardiology input noted and appreciated,CT angiography of the coronaries to assess his appropriateness for TAVR. . Continue to follow Cardiology input and recom mendation. At the time of my visit the patient is comfortably in bed, alert oriented x3, no acute events overnight per discussion with the RN, still feels mildly dizzy when he gets up of the bed and walk around but denied chest pain, shortness shortness for breath, no nausea, no vomiting, no family members at bedside during my visit. 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 Assessment/Plan: Final diagnosis Syncope, secondary to severe/critical aortic stenosis, POA Small skin laceration to the frontal head, POA History of severe/critical aortic stenosis, POA History of nonobstructive coronary artery disease, POA NSTEMI, likely type II, POA History of [id number] mitral regurgitation, POA History of moderate aortic regurgitation, POA History of subdural hematoma in 02/2024, POA History of nonischemic cardiomyopathy with LVEF of 30-35%, POA Hypertension, POA Hyperlipidemia, POA Type 2 diabetes mellitus, POA Discharge Instructions: Possible discharge home today to follow up with CT surgery in any per to get 2nd opinion regarding possible aortic valve replacement. Discussed with the patient, in agreement. Home Medications: Reported Medications Isosorbide Mononitrate (Isosorbide Mononitrate ER) 30 Mg Tab.er.24h, 1 TAB PO DAILY for 30 Days, #30 TAB 0 Refills 03/22/25 Trazodone HCl (Trazodone HCl) 50 Mg Tablet, 1 TAB PO HS for 30 Days, #30 TAB 0 Refills 03/22/25 Losartan Potassium (Losartan Potassium) 50 Mg Tablet, 1 TAB PO DAILY for 30 Days, #30 TAB 0 Refills 03/22/25 Metformin HCl (Metformin HCl) 500 Mg Tablet, 500 MG PO BIDPC, TAB 11/29/24 Tamsulosin HCl (Flomax) 0.4 Mg Cap.er.24h, 1 CAP PO DAILY for 30 Days, #30 CAP 0 Refills 11/29/24 Nitroglycerin (Nitroglycerin) 0.4 Mg Tab.subl, 0.4 MG SL AD, TAB.SL 11/28/24 Atorvastatin Calcium (Atorvastatin Calcium) 40 Mg Tablet, 40 MG PO HS, TAB 11/28/24 Aspirin (Aspirin) 81 Mg Tab.chew, 81 MG PO DAILY, TAB.CHEW 11/28/24 Discontinued Reported Medications Acetaminophen (Acetaminophen) 325 Mg Tablet, 650 MG PO Q4PRN PRN for PAIN LEVEL 1 TO 5, TAB 11/28/24 Sacubitril/Valsartan (Entresto 49 mg-51 mg Tablet) 49 Mg-51 Mg Tablet, 1 EACH PO BID, TAB 11/28/24 Spironolactone (Spironolactone) 25 Mg Tablet, 25 MG PO DAILY, TAB 11/28/24 Empagliflozin (Jardiance) 10 Mg Tablet, 10 MG PO DAILY, TAB 11/28/24 Carvedilol (Carvedilol) 6.25 Mg Tablet, 6.25 MG PO BID, TAB 11/28/24 Time spent arranging discharge: 31-60 minutes ULICES DOVER MD Mar 28, 2025 10:19
[2025-03-28] MEDS ORDERED: BACI30OI6 TP (10:23)
[2025-03-28] MEDS ORDERED: METO25TA3 PO (10:23)
[2025-03-28 12:00] VITALS: BP 111/57; PULSE 65; RESP 16; TEMP 97.6
[2025-03-28 12:11] VITALS: O2SAT 95
--- NOTE | 2025-03-28 15:38 | NUR ---
PATIENT DISCHARGED WITH CD OF CURRENT ECHO.
== END 2025-03-28 15:38 | disposition home or self-care (01) | DRG 281 ==
LOC: 2AH 14:58
PROVIDERS: ADMIT Internal Medicine; ATTEND Internal Medicine
DX: I35.0 Nonrheumatic aortic (valve) stenosis (principal); I42.8 Other cardiomyopathies; I21.A1 Myocardial infarction type 2; I50.42 Chronic combined systolic (congestive) and diastolic (congestive) heart failure; E11.9 Type 2 diabetes mellitus without complications; E78.5 Hyperlipidemia, unspecified; I11.0 Hypertensive heart disease with heart failure; I25.10 Atherosclerotic heart disease of native coronary artery without angina pectoris; I08.0 Rheumatic disorders of both mitral and aortic valves; S01.81XA Laceration without foreign body of other part of head, initial encounter; W18.39XA Other fall on same level, initial encounter; Y93.89 Activity, other specified; Y92.89 Other specified places as the place of occurrence of the external cause; Y99.8 Other external cause status; Z79.82 Long term (current) use of aspirin; Z79.899 Other long term (current) drug therapy; Z87.891 Personal history of nicotine dependence; Z95.2 Presence of prosthetic heart valve; I25.2 Old myocardial infarction; Z79.01 Long term (current) use of anticoagulants
CPT/HCPCS: 36415; 74174; 75574; 80048; 80053; 80061; 82550; 82948; 83036; 83605; 83735; 83880; 84443; 84484; 85025; 85027; 85610; 85730; 93306; 93356; G0378; J1644; J1815; J3475; Q9967